=== PATIENT | male | born 1940 | race Caucasian/White ===

== ENCOUNTER → 2023-07-31 15:07 | Outpatient (REF) | payer OTHER, SELFPAY | LOC: RAD 15:07 | PROVIDERS: ATTENDING PHYSICIAN Physician Assistant | DX: S09.0XXA Injury of blood vessels of head, not elsewhere classified, initial encounter (principal); M25.512 Pain in left shoulder | CPT/HCPCS: 70450; 73030 ==

== ENCOUNTER 2023-08-22 15:23 | Emergency (ER) | payer OTHER, SELFPAY ==
[2023-08-22 15:36] VITALS: BP 119/61
[2023-08-22 16:02] LABS: % Basophils 0.3 % (0-2); % Eosinophils 0.3 % (0-6); % Immature Granulocytes 0.1 % (0-0.5); % Lymphocytes 20.6 % (20.5-51.1); % Monocytes 7.1 % (1.7-9.3); % Neutrophils 71.6 % (42.2-75.2); Absolute Lymphocytes 1.4 10^3/uL (1.2-3.4); Absolute Monocytes 0.5 10^3/uL (0.1-0.6); Absolute Neutrophils 4.9 10^3/uL (1.4-6.5); Hematocrit 37.1 % (39.0-52.0); Hemoglobin 12.2 g/dL (13.0-18.0); Mean Corp Hgb Conc. 32.9 g/dL (33.0-37.0); Mean Corpuscular Hgb 31.6 pg (27.0-31.0); Mean Corpuscular Volume 96.1 fL (80.0-94.0); Mean Platelet Volume 8.8 fL (7.4-10.4); Nucleated Red Blood Cells % 0 % (-); Platelet Count 216 10^3/uL (130-400); Red Blood Cell Count 3.86 10^6/uL (4.70-6.10); Red Cell Dist. Width 13.7 % (11.5-14.5); White Blood Cell Count 6.9 10^3/uL (4.8-10.8)
[2023-08-22 16:14] LABS: ALT (SGPT) 27 U/L (0-50); AST (SGOT) 31 U/L (17-59); Albumin 3.7 g/dl (3.5-5.0); Blood Urea Nitrogen 19 mg/dl (9-20); Carbon Dioxide 32 mmol/L (22-30); Glucose 119 mg/dl (70-99); Total Bilirubin 0.7 mg/dl (0.2-1.3); Total Protein 7.4 g/dl (6.3-8.2); eGFR > 60.00
[2023-08-22 16:27] LABS: Troponin I 0.015 ng/ml
[2023-08-22 16:43] LABS: Alkaline Phosphatase 94 U/L (38-126); Calcium 8.9 mg/dl (8.4-10.2); Chloride 88 mmol/L (98-107); Potassium 5.2 mmol/L (3.5-5.1); Sodium 127 mmol/L (135-145)
[2023-08-22] MEDS: NSS 500 IV (17:57)
[2023-08-22 18:13] LABS: Osmolality Urine 437 mOsm/kg (300-900)
--- NOTE | 2023-08-22 18:13 | ED.GENMED ---
History of Present Illness
General
Chief Complaint: Dizziness
Source: patient, records and family
Exam Limitations: none
Time Seen by Provider: 08/22/23 17:06
Nursing documentation reviewed up to this point in time: agreed with
Travel History
Have you had any contact with someone who has COVID-19?: No
Do you have any symptoms of coronavirus? Fever > 100 degrees, chills, cough, shortness of breath, sore throat, loss of taste or smell, muscle aches, or headache?: No
History of Present Illness
History of Present Illness:
Patient is an 83-year-old male who presents to the emergency feeling wobbly and lightheaded over the past couple days. Patient feels weak but denies any fever or chills. Patient has mild shortness of breath but is unsure if this is an increase
from his baseline. Patient denies chest pain. Patient has chronic cough that is unchanged. Patient denies any nausea or vomiting but admits to decreased oral intake. Patient's had diarrhea. Patient has pulmonary fibrosis and was on OFEV and
then developed diarrhea after 2 weeks. Patient has been off of it for approximately 2 weeks but has not really responded. Patient had something similar approximately a year ago to these medications and was found to be hypovolemic and hyponatremic.
Patient states it feels similar to that. Patient does not like drinking water. Patient does not want to be admitted to the hospital.
Past History
Past History
ED Past Medical History: GERD, Seizures and Other (Pulmonary fibrosis)
ED Past Surgical History: Other (Mohs surgery)
Social History
Tobacco: Non-smoker
Alcohol: None
Drug: None
Living: with family
Review of Systems
Review of Systems
All Other Systems: ROS reviewed and negative except as documented in HPI and ROS
Constitutional: Reports fatigue; Denies fever or chills
EENT: Reports no symptoms
Respiratory: Reports cough and trouble breathing
Cardiac: Reports no symptoms
ABD/GI: Reports diarrhea and anorexia; Denies abdominal pain, nausea or vomiting
: Reports no symptoms
Musculoskeletal: Reports no symptoms
Skin: Reports no symptoms
Neurological: Reports weakness (Generalized and not focal); Denies dizzy
Hematologic/Lymphatic: Reports no symptoms
Phy Exam
Physical Exam
Physical Exam:
Physical Exam
General: No apparent distress, alert and appropriate, elderly and frail with dry mucous membranes
HENT: Normocephalic, supple with no lymphadenopathy, no thyromegaly
Eyes: Clear sclera, conjuctiva without injection
Heart: Regular rhythm and rate. No S3, S4. No murmur. Distant heart sounds
Lungs: No respiratory distress, no stridor, lung sounds coarse and diminished with scattered fibrotic Rales throughout but equal bilaterally
Abdomen: Soft, nontender, BS good
Neuro: Alert and oriented x 3, CN II - XII intact, no motor focality, no cerebellar dysfunction
Skin: no rash
Psychiatric: well kept. interactive and cooperative
Extremities: No edema, cyanosis, tenderness
Course
Orders/Labs/Results
Orders:
Orders
08/22/23 15:41
Electrocardiogram (*1) Urgent
Reason for Study: Shortness of Breath
EKG- Treatment ONCE
08/22/23 15:49
Complete Blood Count/With Diff Urgent
Comprehensive Metabolic Panel Urgent
Serum Osmolality Urgent
Comment: ADDON
Troponin I Urgent
08/22/23 17:36
0.9% Sodium Chloride 500 ml [Nss] 500 ml IV BOLUS
08/22/23 17:42
Add On- LAB Urgent
Tests Added?: serum osmality
08/22/23 17:53
Osmolality, Random Urine Urgent
Date Specimen was Collected: 08/22/23
Time Specimen was Collected: 17:43
Urine Sodium Urgent
Date Specimen was Collected: 08/22/23
Time Specimen was Collected: 17:43
Abnormal Lab Results
08/22/23
15:49
RBC 3.86 L 10^6/uL
(4.70-6.10)
Hgb 12.2 L g/dL
(13.0-18.0)
Hct 37.1 L %
(39.0-52.0)
MCV 96.1 H fL
(80.0-94.0)
MCH 31.6 H pg
(27.0-31.0)
MCHC 32.9 L g/dL
(33.0-37.0)
Sodium 127 L mmol/L
(135-145)
Potassium 5.2 H mmol/L
(3.5-5.1)
Chloride 88 L mmol/L
(98-107)
Carbon Dioxide 32 H mmol/L
(22-30)
Creatinine 0.5 L mg/dL
(0.7-1.3)
Glucose 119 H mg/dl
(70-99)
Serum Osmolality 272 L mOsm/kg
(275-300)
08/22/23 15:49
08/22/23 15:49
Vital Signs
Initial and Last Documented VS:
Initial Vital Signs
Temp Pulse Resp BP Pulse Ox
97.6 F 64 16 119/61 97
08/22/23 15:36 08/22/23 15:36 08/22/23 15:36 08/22/23 15:36 08/22/23 15:36
Last Documented Vital Signs
Temp Pulse Resp BP Pulse Ox
97.6 F 64 16 119/61 97
08/22/23 15:36 08/22/23 15:36 08/22/23 15:36 08/22/23 15:36 08/22/23 15:36
*Radiology
Radiology exam reviewed: other (na)
*Pulse Oximetry
Patient hypoxic: no
Comment: Ranges from 88 to 92% while at rest
*EKG
Interpreted by ED Provider?: Yes
EKG Intrepretation Date: 08/22/23
EKG Intrepretation Time: 18:19
Interpretation: abnormal
Comparison EKG: no changes
Heart Rate: 66
Rate: normal
Rhythm: sinus
[place]: normal axis
Interval: normal QT interval and first degree heart block
QRS Pattern: right bundle branch block
Ischemia: no ischemia
*[employer] Manager Interpretation
Rate: normal
Interpretation: normal
Heart Rate: 66
Rhythm: sinus
*Critical Care Note
Total Time (30-74mins, 75-104mins- exclusive of procedures): Not Applicable
Update Note
Update Note:
Patient does not want to be admitted. Patient's sodium is low. Patient's EF is 55 to 60% on echo 2 2 and 3 years ago. Patient did have coronary stents placed at another hospital in the past year. Patient is not on fluid or salt restriction.
Will check the patient's serum and urine osmolality as well as urine sodium and will run it by nephrology. Believe the patient probably has hypovolemic hyponatremic
Texted with nephrology and will start the patient on salt tabs as well as a high-protein diet. Labs will need to be repeated in a week and will try to control diarrhea.
ED Attending Note
-
Portions of this chart may have been created with voice recognition software.� Occasional wrong word or��sound alike� substitutions may have occurred due to the inherent limitations of voice recognition software.
Discharge Plan
Departure
Patient Disposition: Home (Routine Discharge)
Date of Disposition: 08/22/23
Time of Disposition: 19:36
Patient with high blood pressure during this ER visit?: No
Condition: Fair
Covid-19: Not Applicable
Discharge Problem:
Hyponatremia, Weakness
Instructions: High Calorie, High Protein Diet, Dehydration, Adult ED, Weakness ED, Hyponatremia
Prescriptions:
No Action
levetiracetam 500 MG tablet
2,000 mg PO HS
lamotrigine 300 MG tablet extended release 24hr
600 mg PO DAILY
Rx Instructions:
TAKEN W/ 100MG = 700MG
pantoprazole 20 mg Tablet,Delayed Release (Dr/Ec)
20 mg PO DAILY
Ofev 150 mg Capsule
150 mg PO Q12H
Hold Instructions: Resume on 09/13/22.
prednisone 10 mg tablet
5 mg PO DAILY
lamotrigine 100 mg tablet extended release 24hr
100 mg PO DAILY
Rx Instructions:
TAKEN W/ 600MG = 700MG
Fibroneer
2 tab PO BID
Hold Instructions: Resume on 09/13/22.
Rx Instructions:
Experimental Drug
Referrals:
Sacha Enamorado MD [Family Provider] - Follow up in 5-7 days
Activity Restrictions/Additional Instructions:
Use a high-protein diet. Make sure to drink plenty of fluids. Take a salt tablet (1 gram of Sodium Chloride) twice a day. Make sure to have your sodium rechecked in 5 to 7 days when you see your family doctor. Any problems please return
Interventions
Interventions:
*General Assessment Last Done: 08/22/23 15:36
ED- Fall Risk Assessment Last Done: 08/22/23 18:00
*ED COVID-19 Vaccine History Last Done: 08/22/23 15:36
ED- Neurological Assessment Last Done: 08/22/23 18:00
ED- Cardiac Assessment Last Done: 08/22/23 18:00
ED Swallowing Screen Last Done: 08/22/23 18:00
Discharge Date and Time
Print Language: NORTHER[place] IRISH
[2023-08-22 18:25] LABS: Osmolality Serum 272 mOsm/kg (275-300)
[2023-08-22 19:00] LABS: Urine Sodium 74 mmol/L (30-90)
[2023-08-22 19:49] VITALS: BP 120/60
== END 2023-08-22 19:52 | disposition home or self-care (01) ==
LOC: EMR 15:23
PROVIDERS: Emergency Medicine; EMERGENCY PHYSICIAN Emergency Medicine; FAMILY PHYSICIAN Family Medicine
DX: E87.1 Hypo-osmolality and hyponatremia (principal); R53.1 Weakness; K21.9 Gastro-esophageal reflux disease without esophagitis; G40.909 Epilepsy, unspecified, not intractable, without status epilepticus; J84.10 Pulmonary fibrosis, unspecified
CPT/HCPCS: 99283; 96360; 80053; 83930; 83935; 84300; 84484; 85025; 93005

== ENCOUNTER 2023-08-24 16:29 | Inpatient (IN) | payer OTHER, SELFPAY ==
[2023-08-24] VITALS (9 sets, daily range): BP systolic 97–130; BP diastolic 54–79; BMI 19.8; BMI 19.2
[2023-08-24 12:11] LABS: % Basophils 0.6 % (0-2); % Eosinophils 0.2 % (0-6); % Immature Granulocytes 0.4 % (0-0.5); % Lymphocytes 13.9 % (20.5-51.1); % Monocytes 8.4 % (1.7-9.3); % Neutrophils 76.5 % (42.2-75.2); Absolute Basophils 0.1 10^3/uL (0-0.2); Absolute Lymphocytes 1.3 10^3/uL (1.2-3.4); Absolute Monocytes 0.8 10^3/uL (0.1-0.6); Absolute Neutrophils 6.9 10^3/uL (1.4-6.5); Hematocrit 34.3 % (39.0-52.0); Hemoglobin 11.8 g/dL (13.0-18.0); Mean Corp Hgb Conc. 34.4 g/dL (33.0-37.0); Mean Corpuscular Hgb 31.7 pg (27.0-31.0); Mean Corpuscular Volume 92.2 fL (80.0-94.0); Mean Platelet Volume 8.6 fL (7.4-10.4); Nucleated Red Blood Cells % 0 % (-); Platelet Count 211 10^3/uL (130-400); Red Blood Cell Count 3.72 10^6/uL (4.70-6.10); Red Cell Dist. Width 13.8 % (11.5-14.5); White Blood Cell Count 9.1 10^3/uL (4.8-10.8)
[2023-08-24 12:21] LABS: ALT (SGPT) 20 U/L (0-50); AST (SGOT) 26 U/L (17-59); Albumin 2.9 g/dl (3.5-5.0); Alkaline Phosphatase 79 U/L (38-126); Blood Urea Nitrogen 13 mg/dl (9-20); Calcium 7.3 mg/dl (8.4-10.2); Carbon Dioxide 29 mmol/L (22-30); Chloride 95 mmol/L (98-107); Estimated Creatinine Clearance 78 ml/min; Glucose 123 mg/dl (70-99); Sodium 130 mmol/L (135-145); Total Bilirubin 0.5 mg/dl (0.2-1.3); Total Protein 5.8 g/dl (6.3-8.2); eGFR > 60.00
--- NOTE | 2023-08-24 12:31 | ED.GENMED ---
History of Present Illness
General
Chief Complaint: Fall
Time Seen by Provider: 08/24/23 11:59
Travel History
Have you had any contact with someone who has COVID-19?: No
Do you have any symptoms of coronavirus? Fever > 100 degrees, chills, cough, shortness of breath, sore throat, loss of taste or smell, muscle aches, or headache?: No
History of Present Illness
History of Present Illness:
83-year-old male with history of interstitial lung disease/pulmonary fibrosis presents to the emergency department for evaluation of severe weakness. He had a minor fall today and was unable to get himself up off the floor on several occasions. He
was seen here in this emergency department 2 days ago for presumed dehydration and was recommended to be admitted however declined. He was also noted to have a room air oxygen saturation of 66% on arrival and is noted to have a low-grade fever. He
denies any coughing or purulent sputum. Denies any chest pain at this time
Past History
Past History
ED Past Medical History: GERD, Seizures and Other (Pulmonary fibrosis)
ED Past Surgical History: Other (Mohs surgery)
Social History
Tobacco: Non-smoker
Alcohol: None
Drug: None
Living: with family
Review of Systems
Review of Systems
Allergies reviewed?: Yes
All Other Systems: ROS reviewed and negative except as documented in HPI and ROS
Phy Exam
Physical Exam
Physical Exam:
GEN: Thin and frail, cachectic appearing, tachypneic with pursed lip breathing
Eyes: PERRLA, EOMs intact, no scleral icterus
HENT: NCAT, oral mucosa dry
Lungs: Tachypneic with pursed lip breathing, profoundly diminished breath sounds on the right, faint interstitial crackles on the left
Cardiac: RRR, no M/R/G, no peripheral edema. Radial pulses 2+ bilat
Abdomen: S, NT, ND, NABS, no masses or hepatosplenomegaly
Neuro: AO x 3
MSK: No gross deformity or ecchymosis. No edema. No digital clubbing
Skin: No rashes, petechiae. Normal color, no pallor or jaundice.
Psych: Calm, cooperative, proper hygiene
Course
Orders/Labs/Results
Orders:
Orders
08/24/23 12:01
EKG [Electrocardiogram (*1)] Urgent
Reason for Study: Syncope
08/24/23 12:02
EKG- Treatment ONCE
08/24/23 12:03
Complete Blood Count/With Diff Urgent
Comprehensive Metabolic Panel Urgent
08/24/23 12:30
CR Chest - 2 Views Urgent
Comment:
Reason For Exam: hypoxia
08/24/23 12:37
Blood Culture Q30M
FILEMON Source: Blood/Venous
Specimen Description:
Blood Culture Q30M
FILEMON Source: Blood/Venous
Specimen Description:
08/24/23 12:38
COVID-19 Antigen Urgent
Source: Nasal Swab
Lactic Acid Q4H
Comment: CANCEL 2nd LACTIC ACID IF 1st LACTIC ACID IS LESS THAN 2
Venous Blood Gas Urgent
%Oxygen/Room Air: 66
08/24/23 12:59
Urinalysis Reflex To Culture Urgent
Date Specimen was Collected: 08/24/23
Time Specimen was Collected: 12:51
08/24/23 13:26
LevoFLOXacin 750 MG/150 ML [Levaquin] 750 mg in 150 ml IV NOW
08/24/23 13:36
0.9% Sodium Chloride 1000 ml [Nss] 1,000 ml IV BOLUS
08/24/23 16:45
Lactic Acid Q4H
Comment: CANCEL 2nd LACTIC ACID IF 1st LACTIC ACID IS LESS THAN 2
Abnormal Lab Results
08/24/23 08/24/23
12:03 12:38
RBC 3.72 L 10^6/uL
(4.70-6.10)
Hgb 11.8 L g/dL
(13.0-18.0)
Hct 34.3 L %
(39.0-52.0)
MCH 31.7 H pg
(27.0-31.0)
Absolute Neuts (auto) 6.9 H 10^3/uL
(1.4-6.5)
Absolute Monos (auto) 0.8 H 10^3/uL
(0.1-0.6)
Neutrophils % 76.5 H %
(42.2-75.2)
Lymphocytes % 13.9 L %
(20.5-51.1)
VBG pCO2 63 H mmHg
(35-48)
VBG HCO3 34.8 H mmol/L
(22-27)
Sodium 130 L mmol/L
(135-145)
Chloride 95 L mmol/L
(98-107)
Creatinine 0.4 L mg/dL
(0.7-1.3)
Glucose 123 H mg/dl
(70-99)
Lactic Acid 3.7 H mmol/L
(0.7-2.0)
Calcium 7.3 L D mg/dl
(8.4-10.2)
Total Protein 5.8 L D g/dl
(6.3-8.2)
Albumin 2.9 L g/dl
(3.5-5.0)
08/24/23 12:03
08/24/23 12:03
Vital Signs
Initial and Last Documented VS:
Initial Vital Signs
BP
97/61
08/24/23 11:49
Last Documented Vital Signs
Temp Pulse Resp BP Pulse Ox
100.8 F H 85 29 103/58 95
08/24/23 11:52 06/02/24 13:00 08/24/23 13:00 08/24/23 13:00 08/24/23 13:00
MDM/Problems Addressed
MDM/Problems Addressed:
Patient is markedly hypoxic likely secondary to bilateral pneumonia. His weakness is most likely secondary to hypoxia. He also appears to be volume depleted clinically. Will require hospitalization for further management. Broad-spectrum IV
antibiotics initiated particular given the patient's chronic steroid use
*Critical Care Note
Total Time (30-74mins, 75-104mins- exclusive of procedures): Not Applicable
ED Attending Note
-
Portions of this chart may have been created with voice recognition software.� Occasional wrong word or��sound alike� substitutions may have occurred due to the inherent limitations of voice recognition software.
Discharge Plan
Departure
Patient Disposition: Admit
Date of Disposition: 08/24/23
Time of Disposition: 13:51
Admit to: Med/Surg
Presentation/result/management discussed w/ accepting MD/DO: Hospitalist
Discharge Problem:
Bilateral pneumonia, Acute hypoxemic respiratory failure
Prescriptions:
No Action
lamotrigine 300 MG tablet extended release 24hr
600 mg PO HS
Rx Instructions:
TAKEN W/ 100MG = 700MG
pantoprazole 20 mg Tablet,Delayed Release (Dr/Ec)
20 mg PO DAILY
prednisone 10 mg tablet
5 mg PO DAILY
lamotrigine 100 mg tablet extended release 24hr
100 mg PO HS
Rx Instructions:
TAKEN W/ 600MG = 700MG
atorvastatin 80 mg tablet
80 mg PO DAILY
clopidogrel 75 mg tablet
75 mg PO DAILY
aspirin 81 mg Tablet,Delayed Release (Dr/Ec)
81 mg PO DAILY
nitroglycerin 0.4 mg tablet, sublingual
0.4 mg sublingual [id number] PRN (Reason: chest pain)
metoprolol tartrate 25 mg tablet
25 mg PO BID
levetiracetam 500 mg Tablet Extended Release 24 Hr
2,000 mg PO HS
Referrals:
Sacha Enamorado MD [Family Provider] -
Interventions
Interventions:
*Risk Screen - Suicide Last Done: 08/24/23 11:58
*General Assessment Last Done: 08/24/23 11:58
*Neglect/Abuse Screening Last Done: 08/24/23 11:58
ED- Fall Risk Assessment Last Done: 08/24/23 13:20
ED-Musculoskeletal Assessment Last Done: 08/24/23 14:05
ED- Neurological Assessment Last Done: 08/24/23 13:20
ED-Skin Assessment Last Done: 08/24/23 14:05
Discharge Date and Time
Print Language: MONGOLIAN
[2023-08-24 13:11] LABS: Venous Blood Gas B.E. 7.3 mmol/L (-4 to +4); Venous Blood Gas HCO3 34.8 mmol/L (22-27); Venous Blood Gas O2 Sat % 68.9 %; Venous Blood Gas O2 Therapy 66; Venous Blood Gas pCO2 63 mmHg (35-48); Venous Blood Gas pH 7.35 (7.32-7.43); Venous Blood Gas pO2 40 mmHg (30-50)
[2023-08-24 13:13] LABS: Urine Albumin Negative (Neg - Trace); Urine Bilirubin Negative (Negative); Urine Character Slightly Cloudy (Clear); Urine Color Yellow; Urine Glucose Negative (Negative); Urine Ketone Negative (Negative); Urine Leukocyte Negative (Negative); Urine Nitrite Negative (Negative); Urine Occult Blood Negative (Negative); Urine Urobilinogen Negative (Neg - 1+)
[2023-08-24 13:21] LABS: Lactic Acid 3.7 mmol/L (0.7-2.0)
[2023-08-24 13:25] LABS: COVID-19 Antigen Negative (Negative)
[2023-08-24] MEDS: LEVAQUIN 150 IV (13:46)
[2023-08-24] MEDS: NSS 1000 IV (13:47)
--- NOTE | 2023-08-24 14:45 | HPS.HSE ---
Addendum entered and electronically signed by Chaz Munoz MD 08/24/23 16:46:
weakness noted at home, [facility] 66% (?accurate) and admitted with potential dx of LLL PNA
Pt seen independently and agree with COMMUNITY HEALTH DIRECTOR evaluation
Cachectic appearing with marked supraclavicular muscle loss (dgt relates that while on recent trial medication oral intake was very poor)
Lungs diffuse interstitial rales, no wheeze, no rhonchi
CV reg
Ext no edema
Imp: possible LLL PNA
ILD
cachexia
P: pulm consult
Levaquin
CT scan of chest
Pt is a DNR
Original Note:
Family Physician
-
Family Physician: Sacha Enamorado
Chief Complaint
-
Weakness, fall, fever
History of Present Illness
83-year-old male from home who reports when trying to get out of bed this morning he slid out of bed. He was seen at [place] [facility] 2 days ago for dehydration given IV fluids. He was noted to be hypoxic at 66% on room air on arrival which improved
to 4 L nasal cannula to 95%, although does not report any increased respiratory difficulty. He has a chronic nonproductive cough. Chest x-ray showing a left mid to lower lobe PNA with temp of 100.8 F. The patient denies sore throat, headache,
cough, chest pain, increased shortness of breath, abdominal pain, nausea, vomiting, diarrhea, urinary symptoms. The patient has past medical history of ILD chronic steroid-dependent, nocturnal epilepsy, GERD,Cardiac stent April x 2, May x at
[facility], pt follows with Dr Haley Galvez at [place], aortic stenosis.
Medical History
Past Medical History
Past Medical History: Reports Other
Additional Past Medical History:
IPF chronic steroid
BiPAP at bedtime with 2 L NC
Epilepsy
GERD
CAD
Aortic stenosis
Past Surgical History: Reports Other
Additional Past Surgical History:
Cardiac stent April x 2, May x at [facility] Dr aaron, pt follows with Dr Haley Galvez at [place]
Social History
Tobacco: Former Smoker
Alcohol: Daily (2 beers daily)
Drug: None
Living: With Family
Family History
Family History: Not pertinent
Allergies / Home Medications
Allergies reflects when Allergies were last updated in [employer].
Home Medications with original date entered in [employer]
Allergy/Medication List:
Allergies
Allergy/AdvReac Type Severity Reaction Status Date / Time
No Known Allergies Allergy Verified 08/22/23 15:39
Home Medications
lamotrigine 300 mg tablet,extended release 24 hr 600 mg PO HS Seizures 09/24/17
lamotrigine 100 mg tablet,extended release 24 hr 100 mg PO HS Seizures 09/08/22
pantoprazole 20 mg tablet,delayed release 20 mg PO DAILY Gastrointestinal Issue 09/08/22
prednisone 10 mg tablet 5 mg PO DAILY Autoimmune Disorder 09/08/22
aspirin 81 mg tablet,delayed release 81 mg PO DAILY 08/24/23
atorvastatin 80 mg tablet 80 mg PO DAILY 08/24/23
clopidogrel 75 mg tablet 75 mg PO DAILY 08/24/23
levetiracetam 500 mg tablet,extended release 24 hr 2,000 mg PO HS 08/24/23
metoprolol tartrate 25 mg tablet 25 mg PO BID 08/24/23
nitroglycerin 0.4 mg sublingual tablet 0.4 mg sublingual [id number] PRN chest pain 08/24/23
Review of Systems
-
History Source: Patient and Family (Daughter at bedside)
A 12 point ROS was completed and negative except as noted: Yes
Constitutional: Reports Fever and Fatigue
EENT: Denies Sore Throat or Runny Nose
Respiratory: Denies Cough or Trouble Breathing
Cardiac: Denies Chest Pain, Diaphoresis, Palpitations or Syncope
Abdomen/GI: Denies Abdominal Pain, Nausea, Vomiting, Diarrhea, Constipated, Bloody Stools or Black Stools
: Denies Dysuria, Frequency, Flank Pain, Incontinence, Difficulty Voiding or Urgency
Musculoskeletal: Denies Joint Pain or Edema
Skin: Denies Itching or Rash
Neurological: Reports Weakness (Generalized); Denies Dizzy or Headache
Endocrine: Reports No Symptoms
Hematologic/Lymphatic: Reports No Symptoms
Psych: Reports Calm
Physical Exam
Vital Signs
Vital Signs
Temp Pulse Resp BP Pulse Ox
100.8 F H 85 29 103/58 95
08/24/23 11:52 08/24/23 13:00 08/24/23 13:00 08/24/23 13:00 08/24/23 13:00
Physical Exam
General: Conversant, Fever, Chills and Other (Generalized weakness); No Pain
HEENT: NormoCephalic, Anicteric, Moist mucous membranes, PERRLA, [place] Conjunctivae and No Ptosis
Respiratory: Rales (Coarse scattered throughout both lung martinez); No Wheezes or Rhonchi
Cardiac: S1/S2, Regular Rhythm and Murmur (Diastolic 3/6 known aortic stenosis per family); No Rub, Gallop, Peripheral Edema or JVD
Breast: Deferred by me
GI: Soft, Non Tender, Non Distended, Normal Bowel Sounds and No Hepatosplenomegaly
Rectal: Deferred by Provider
Genito-urinary: Deferred by me
Musculoskeletal: Clubbing, No Cyanosis and No Edema
Skin: Warm and Dry; No Rash
Neuro: AO x 3 (But overall generalized weakness), No Motor Deficits, Nonfocal/grossly intact, Cranial Nerves Intact and No Sensory Deficits; No Slurred Speech, Facial Droop or Tremors
Psych: Calm
Laboratory Results
-
08/24/23 12:03
08/24/23 12:03
Laboratory Results
Lactic Acid 3.7 mmol/L (0.7-2.0) H 08/24/23 12:38
Total Bilirubin 0.5 mg/dl (0.2-1.3) 08/24/23 12:03
AST 26 U/L (17-59) 08/24/23 12:03
ALT 20 U/L (0-50) 08/24/23 12:03
Alkaline Phosphatase 79 U/L (38-126) 08/24/23 12:03
Impression/Plan
-
Impression/plan:
Admit to MedSurg
#Acute hypoxic respite sufficiency 2/2 left mid/lower PNA/Hx ILD chronic steroid-dependent
66% RA? true reading , 4 L nasal cannula 97%
COVID negative
-WBC 9.1, 100.8, 103/58, HR 85
-Sputum culture, blood cultures x 2
-IV Levaquin
-Consult Pulm -Dr. Los ortega
-On chronic prednisone 5 mg daily
-Tylenol as needed
-Follow CBC, CMP
CXR:
1. New extensive ground-glass opacity throughout the left mid and lower lung. Diagnostic possibilities are (1) SEVERE PNEUMONIA or (2) acute inflammatory pneumonitis.
2. 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
mediastinal shift and elevation of the right hemidiaphragm.
3. 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
#Hx ILD on chronic steroid
-cont prednisone 5 mg daily
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 Edgar Miller wants him to restart Ofev
-stopped OFEv 2-3 weeks ago dueto diarrhea his daugther states does come on and off of
#Chronic BiPAP use at bedtime
Uses full mask BiPAP with 3 L nasal cannula patient to bring own
#Daily Etoh use
- drinks 2 beers daily
no concern for MSAS protocol
#Hx nocturnal epilepsy
-Continue Keppra 2000 mg at bedtime, Lamictal 700 mg at bedtime
#GERD
Continue Protonix 20 mg daily
#CAD
#Cardiac stent April x 2, May x at [facility] Dr aaron, pt follows with Dr Haley Galvez at [place]
-Continue aspirin, atorvastatin 80 mg daily, Plavix 75 mg daily, metoprolol tartrate 25 mg twice daily with hold parameters
#Known aortic stenosis
DVT prophylaxis
Subcu Lovenox
DNR Per pt with daughter at bedside
--- NOTE | 2023-08-24 17:19 | CON.PUL ---
Consultation
Consultation Request
Date/Time Consultation Requested: 08/24/2023
Date/Time Consultation Performed: 08/24/2023
Requesting Provider: Dr. Munoz
Performing Provider: Dr. Jaime Madison
Reason for Consultation: Hypoxemic respiratory insufficiency-pneumonia
Medical History
-
History of Present Illness:
83-year-old man who came from home after falling from his bed. Apparently was seen 2 days ago in the emergency room he was given IV fluid for dehydration.
He was noted to be hypoxemic with sats down to 66%. Required 4 L of nasal cannula on arrival. He denies any respiratory difficulties.
Does report a chronic nonproductive cough with his history of interstitial lung disease for which he follows up at [facility]. Chest x-ray showed left mid and lower lobe infiltrate. Patient had a low-grade fever.
Denies any sore throat, hemoptysis, nausea, vomiting, diarrhea, swallowing problems.
Patient is on chronic steroids for interstitial lung disease and follows up at [facility].
Patient has been having poor p.o. intake. Weight loss.
Past Medical History
Past Medical History: Other (See assessment and plan section)
Social History
Tobacco: Former Smoker
Alcohol: Daily (2 beers)
Drug: None
Living: With Family
Family History
Family History: Reviewed & Not Pertinent
Allergies / Home Medications
Allergies
Allergy/AdvReac Type Severity Reaction Status Date / Time
No Known Allergies Allergy Verified 08/22/23 15:39
Home Medications
�Medication �Instructions �Recorded �Confirmed �Last Taken �Type
lamotrigine 300 mg tablet,extended 600 mg PO HS Seizures 09/24/17 08/24/23 08/23/23 History
release 24 hr
lamotrigine 100 mg tablet,extended 100 mg PO HS Seizures 09/08/22 08/24/23 08/23/23 History
release 24 hr
pantoprazole 20 mg tablet,delayed 20 mg PO DAILY Gastrointestinal 06/08/24/23 08/23/23 History
release Issue
prednisone 10 mg tablet 5 mg PO DAILY Autoimmune Disorder 09/08/22 08/24/23 08/23/23 History
aspirin 81 mg tablet,delayed 81 mg PO DAILY 08/24/23 08/24/23 08/23/23 History
release
atorvastatin 80 mg tablet 80 mg PO DAILY 08/24/23 08/24/23 08/23/23 History
clopidogrel 75 mg tablet 75 mg PO DAILY 08/24/23 08/24/23 08/23/23 History
levetiracetam 500 mg 2,000 mg PO HS 08/24/23 08/24/23 08/23/23 History
tablet,extended release 24 hr
metoprolol tartrate 25 mg tablet 25 mg PO BID 08/24/23 08/24/23 08/23/23 History
nitroglycerin 0.4 mg sublingual 0.4 mg sublingual [id number] PRN 08/24/23 08/24/23 Unknown History
tablet chest pain
Review of Systems
-
History Source: Patient
All other systems: Negative unless noted
Vitals / Labs / Diagnostic Testing
Vital Signs
Temp Pulse Resp BP Pulse Ox
98.4 F 85 29 103/58 95
08/24/23 15:45 08/24/23 13:00 08/24/23 13:00 08/24/23 13:00 08/24/23 13:00
Lab Data
08/24/23 12:03
08/24/23 12:03
Diagnostic Testing:
Physical Exam
-
HEENT: Normocephalic
Cardiovascular: S1/S2
Respiratory: Rales (Bilateral,)
GI: Soft and Non Distended
Neurology: Awake, Alert, Oriented and No Motor Deficits
Skin: Warm
General: Comfortable
Assessment
-
83-year-old male with past medical history noted, on low-dose chronic steroids for interstitial lung disease. Also on antifibrotic therapy Ofev, follows up at [facility]. Came to the hospital after falling off of bed. Found to be
hypoxemic. Recently seen in the emergency room for dehydration as well. Recently stopped off of due to diarrhea about 2 to 3 weeks ago. Chest x-ray showed new left sided infiltrate on top of interstitial changes that are chronic.
Respiratory insufficiency likely due to pneumonia on top of interstitial lung disease. Requiring 4 L of supplemental oxygen.
CXR:
-New extensive ground-glass opacity throughout the left mid and lower lung. Diagnostic possibilities are (1) SEVERE PNEUMONIA or (2) acute inflammatory pneumonitis.
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
mediastinal shift and elevation of the right hemidiaphragm.
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
Pulmonary cachexia
-
Conditions present prior admission:
Interstitial lung disease/?IPF on chronic steroids-follows up at [facility]. No details available.
5 mg of prednisone.
Patient stopped Ofev 2-3 weeks ago due to diarrhea
Not usually on supplemental oxygen.
Nocturnal BiPAP-2 L at bedtime.
Epilepsy
GERD
Coronary Artery disease
Aortic stenosis
Prior cardiac stents
Former smoker
Daily drinker-2 beers per day.
Assessment and plan:
Clinical picture suggest pneumonia-Viral versus bacterial.
Patient has a new left lower lobe and upper lobe groundglass opacity compared to prior x-rays. On top of chronic interstitial changes.
Differential diagnosis includes acute exacerbation of underlying ? idiopathic pulmonary fibrosis-in general infiltrates will be more symmetric.
I agree to start with antibiotics-received Levaquin in the emergency room. Continue for now.
Obtain a sputum culture
Blood cultures.
Follow fever curve and leukocytosis. Patient did have a low-grade fever on admission.
-
Okay to continue prednisone as prior to admission.
If there is worsening oxygenation then a CT of the chest may be helpful. Okay to hold for now.
Hold off on pulse steroids for now, infectious etiology suspected.
-
Doubt pulmonary edema as the patient appears to be dehydrated. Recently has been having diarrhea and also poor p.o. intake the last few days.
-
Incentive spirometry will be ordered
-
Aspiration precautions
-
Nocturnal bipap with 2 L O2 - similar to home.
Pt has a POC at home that he uses PRN.
-
Nutritional support, pt cachectic.
-
DVT prophylaxis
-
Will continue to follow.
-
DNR status.
-
After discharge patient will continue to follow-up at [facility].
-
Family updated by Dr. Madison 08/24/2023

Diagnosis section reviewed:
Echocardiogram 09/04/2021: Normal left ventricular size and function. No regional wall motion abnormalities. Mild LVH. Ejection fraction 55-60%. Normal biventricular size and function.
Mild aortic stenosis.
[2023-08-24 18:10] LABS: Lactic Acid 0.8 mmol/L (0.7-2.0)
[2023-08-24] MEDS: LOVENOX 40 MG SC (19:53)
[2023-08-24] MEDS: LOPRESSOR 25 MG PO (19:57)
[2023-08-24] MEDS: KEPPRA XR (EXTENDED RELEASE) 2000 MG PO (21:20)
[2023-08-24] MEDS: NON-FORMULARY ITEM 100 MG PO (21:20)
[2023-08-24] MEDS: NON-FORMULARY ITEM 600 MG PO (21:20)
[2023-08-25 07:45] VITALS: BP 107/63
[2023-08-25 07:48] LABS: % Basophils 0.4 % (0-2); % Eosinophils 0.3 % (0-6); % Immature Granulocytes 0.4 % (0-0.5); % Lymphocytes 22.8 % (20.5-51.1); % Monocytes 7.6 % (1.7-9.3); % Neutrophils 68.5 % (42.2-75.2); Absolute Lymphocytes 2.1 10^3/uL (1.2-3.4); Absolute Monocytes 0.7 10^3/uL (0.1-0.6); Absolute Neutrophils 6.2 10^3/uL (1.4-6.5); Hematocrit 32.9 % (39.0-52.0); Mean Corp Hgb Conc. 33.4 g/dL (33.0-37.0); Mean Corpuscular Hgb 31.3 pg (27.0-31.0); Mean Corpuscular Volume 93.7 fL (80.0-94.0); Mean Platelet Volume 9.1 fL (7.4-10.4); Nucleated Red Blood Cells % 0 % (-); Platelet Count 210 10^3/uL (130-400); Red Blood Cell Count 3.51 10^6/uL (4.70-6.10)
[2023-08-25] MEDS: PROTONIX 20 MG PO (07:53)
[2023-08-25] MEDS: DELTASONE 5 MG PO (07:53)
[2023-08-25] MEDS: ASPIR LOW (ENTERIC COATED) 81 MG PO (07:53)
[2023-08-25] MEDS: LIPITOR 80 MG PO (07:53)
[2023-08-25] MEDS: LOPRESSOR 25 MG PO ×2 (07:53→21:15)
[2023-08-25] MEDS: PLAVIX 75 MG PO (07:53)
[2023-08-25 08:29] LABS: ALT (SGPT) 21 U/L (0-50); AST (SGOT) 30 U/L (17-59); Albumin 3.3 g/dl (3.5-5.0); Alkaline Phosphatase 107 U/L (38-126); Blood Urea Nitrogen 14 mg/dl (9-20); Calcium 8.6 mg/dl (8.4-10.2); Carbon Dioxide 33 mmol/L (22-30); Chloride 91 mmol/L (98-107); Estimated Creatinine Clearance 75 ml/min; Glucose 91 mg/dl (70-99); Sodium 130 mmol/L (135-145); Total Bilirubin 0.7 mg/dl (0.2-1.3); Total Protein 6.7 g/dl (6.3-8.2); eGFR > 60.00
--- NOTE | 2023-08-25 10:12 | W.PN.PUL.V3 ---
Today's Communication / Plan
-
Wean oxygen
Continue antibiotics
Follow radiographs on occasion
No change in prednisone
Outpatient pulmonary [id number]
Assessment
-
83-year-old male with past medical history noted, on low-dose chronic steroids for interstitial lung disease. Also on antifibrotic therapy Ofev, follows up at [facility]. Came to the hospital after falling off of bed. Found to be
hypoxemic. Recently seen in the emergency room for dehydration as well. Recently stopped off of due to diarrhea about 2 to 3 weeks ago. Chest x-ray showed new left sided infiltrate on top of interstitial changes that are chronic.
Respiratory insufficiency likely due to pneumonia on top of interstitial lung disease. Requiring 4 L of supplemental oxygen.
CXR:
-New extensive ground-glass opacity throughout the left mid and lower lung. Diagnostic possibilities are (1) SEVERE PNEUMONIA or (2) acute inflammatory pneumonitis.
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
mediastinal shift and elevation of the right hemidiaphragm.
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
Pulmonary cachexia
-
Conditions present prior admission:
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 No details available.
5 mg of prednisone.
Patient stopped Ofev 2-3 weeks ago due to diarrhea
Not usually on supplemental oxygen.
Nocturnal BiPAP-2 L at bedtime.
Epilepsy
GERD
Coronary Artery disease
Aortic stenosis
Prior cardiac stents
Former smoker
Daily drinker-2 beers per day.
Plan
Respiratory status relatively stable
Wean supplemental oxygen-has home oxygen but only uses it at night
Nocturnal BiPAP with 2 L of oxygen
Aspiration precautions
Incentive spirometry
Mucolytic's
Mucus clearing devices
Continue outpatient prednisone 5 mg daily
Cultures reviewed
Unable to produce sputum
Empiric antibiotics
Follow radiographically
DVT prophylaxis-on Lovenox
GI prophylaxis-on pantoprazole
Nutrition
Early mobilization
Outpatient pulmonary [id number] at [facility]
Reviewed with nursing

Diagnosis section reviewed:
Echocardiogram 09/04/2021: Normal left ventricular size and function. No regional wall motion abnormalities. Mild LVH. Ejection fraction 55-60%. Normal biventricular size and function.
Mild aortic stenosis.
Subjective Data
-
Date of Service:
Date of Service: August 25, 2023
Chief Complaint: Pulmonary Follow Up and Dyspnea Follow Up
Subjective:
Feels about the same, no complaints of worsening shortness of breath, nonproductive cough, no chest pain, pleurisy, abdominal pain
Review of Systems
General: Other (Per HPI)
Objective Data
Data Reviewed
Vital Signs / I&O:
Vital Signs
Temp Pulse Resp BP Pulse Ox
97.2 F 88 18 107/63 98
08/25/23 07:45 08/25/23 07:53 08/25/23 07:45 08/25/23 07:53 08/25/23 07:45
Intake and Output
08/24/23 08/25/23 08/26/23
06:59 06:59 06:59
Intake Total 240 / 240
Output Total 100 / 100
Balance 140 / 140
SaO2: 98
Nasal Cannula flow liters per minute: 4
Physical Exam
General: Respiratory Distress (n) and Comfortable
HEENT: Normocephalic, Anicteric and Moist Mucous Membranes
Cardiovascular: Regular Rhythm
Respiratory: Wheeze (n), Crackles (Bilateral bases left greater than right), Rhonchi (n), Non-Labored Respirations, Accessory Resp Muscle Use (n) and Stridor (n)
GI: Soft, Non Distended and Non Tender
Neurology: Awake, Alert and No Motor Deficits
Skin: Warm, Good Color, Cyanosis (n), Jaundice (n) and Rash
Labs/Micro/Reports
Lab Data
08/25/23 06:33
08/25/23 06:33
--- NOTE | 2023-08-25 10:28 | W.PN.HOSP.TC ---
Today's Communication/Plan
-
see bold
Assessment / Plan
Assessment / Plan
#Acute hypoxic respite sufficiency
Left mid/lower PNA/Hx ILD chronic steroid-dependent
66% RA? true reading , 4 L nasal cannula 97% -wean as tolerated
COVID negative
Appreciate pulmonology input, continue antibiotics, bronchodilators
CXR:
1. New extensive ground-glass opacity throughout the left mid and lower lung. Diagnostic possibilities are (1) SEVERE PNEUMONIA or (2) acute inflammatory pneumonitis.
2. 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
mediastinal shift and elevation of the right hemidiaphragm.
3. 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
#Hx ILD on chronic steroid
-cont prednisone 5 mg daily
-Patient finished drug trial study yesterday as his guest service representative at [facility] Dr. Edgar Miller wants him to restart Ofev
-stopped OFEv 2-3 weeks ago dueto diarrhea his daugther states does come on and off of
#Chronic BiPAP use at bedtime
Uses full mask BiPAP with 3 L nasal cannula patient to bring own
#Daily Etoh use
- drinks 2 beers daily
no concern for MSAS protocol
#Hx nocturnal epilepsy
-Continue Keppra 2000 mg at bedtime, Lamictal 700 mg at bedtime
#GERD
Continue Protonix 20 mg daily
#CAD
#Cardiac stent April, May at [facility] Dr aaron, pt follows with Dr Haley Galvez at [place]
-Continue aspirin, atorvastatin 80 mg daily, Plavix 75 mg daily, metoprolol tartrate 25 mg twice daily with hold parameters
#Known aortic stenosis
DVT prophylaxis
Subcu Lovenox
DNR Per pt with daughter at bedside
Total time spent to see the patient on the floor, examine the patient, review data and lab results, discuss treatment plan with patient, nursing staff around 35 minutes.
Physical Exam
General: No acute distress
HEENT: Normocephalic, Atraumatic, EOMI, MMM
Respiratory: Clear to Auscultation bilaterally
Cardiac: Normal S1/S2, Regular Rate and Rhythm
GI: Soft, Nontender, Nondistended, Normal Bowel Sounds
Extremities: No Clubbing, Cyanosis, or Edema
Neuro: Nonfocal/Grossly Intact
Psych: Calm, Cooperative
Derm: No Visible lesions
Anticipated Discharge: 24 - 48 hours
Subjective/Interval History
-
Date of Service: August 25, 2023
Shortness of breath improved. No fever, no vomiting.
Objective Data
-
Labs:
Laboratory Results
08/25/23
06:33
WBC 9.0
Hgb 11.0 L
Hct 32.9 L
Plt Count 210
Sodium 130 L
Potassium 4.0
Chloride 91 L
Carbon Dioxide 33 H
BUN 14
Creatinine 0.5 L
Glucose 91
Calcium 8.6
Total Bilirubin 0.7
AST 30
ALT 21
Alkaline Phosphatase 107
Vital Signs:
Vital Signs
Temp Pulse Resp BP Pulse Ox
97.2 F 88 18 107/63 98
08/25/23 07:45 08/25/23 07:53 08/25/23 07:45 08/25/23 07:53 08/25/23 10:12
I&O
08/24/23 08/25/23 08/26/23
06:59 06:59 06:59
Intake Total 240 / 240
Output Total 100 / 100
Balance 140 / 140
--- NOTE | 2023-08-25 11:47 | RESPNOTE ---
patient was 85% on room air. placed on 2L and oxygen saturation came up to 93%. attempted to stand patient up to ambulate x2 and both times patient was wobbly and very unsteady on his feet. patient stated he could not walk and to sit him back in
bed.
--- NOTE | 2023-08-25 13:08 | CM ---
Patient seen bedside with daughter, Cyndi, initial assessment completed. Patient resides with his daughter in a two story home, two steps to enter. Patient denies DME for ambulation, does have a Bipap and oxygen at home for night time use. Patient
denies VN or SNF, reports he was supposed to start outpatient therapy at [place] but was admitted to hospital. Patient confirms PCP Sacha Enamorado, pharmacy [facility] on [address] in [place], confirms prescription coverage. CM discussed PT
recommendation of SNF, provided patient and daughter with list of SNFs, daughter would like to look into facilities and provide CM with choices. CM will continue to follow for discharge planning needs.
Plan; SNF pending accepting facility, family looking into local facilities, will require auth.
[2023-08-25] MEDS: LEVAQUIN 100 IV (14:56)
[2023-08-25 15:00] VITALS: BP 112/60
[2023-08-25] MEDS: LOVENOX 40 MG SC (17:36)
[2023-08-25 21:15] VITALS: BP 116/69
[2023-08-25] MEDS: KEPPRA XR (EXTENDED RELEASE) 2000 MG PO (22:30)
[2023-08-25] MEDS: NON-FORMULARY ITEM 600 MG PO (22:31)
[2023-08-25] MEDS: NON-FORMULARY ITEM 100 MG PO (22:31)
[2023-08-25 23:40] VITALS: BP 91/53
--- NOTE | 2023-08-26 06:00 | PTCARENOTE ---
Pt woke up this morning unable to recall where he was, asking 'Is this the airline?' After about five minutes this RN was able to reorient pt and he was able to report that he was at [facility]. Pt has a history of nocturnal epilepsy and
states that 'About five years ago I had a similar issue where I forgot where I was and it was a seizure'. No seizure activity noted during shift. VS stable and taken by this RN. House LAVATORY ATTENDANT Jennifer Swain notified, no new orders at this time.
[2023-08-26 06:01] VITALS: BP 120/65
--- NOTE | 2023-08-26 06:19 | W.PN.UPDATE ---
Update Note
Progress Note Update
0600 RN reports that when attempting to reposition pt this am he was confused, thinking he was at airport. After a few min pt returned to aaox3. Pt with hx of nocturnal epilepsy- last one 5 yrs ago and states similar symptoms of not remembering
where he was. PT already on 2 high doses of AED
Consider neuro consult if continues
[2023-08-26 07:06] LABS: % Basophils 0.4 % (0-2); % Eosinophils 1.1 % (0-6); % Immature Granulocytes 0.4 % (0-0.5); % Lymphocytes 13.5 % (20.5-51.1); % Monocytes 7.7 % (1.7-9.3); % Neutrophils 76.9 % (42.2-75.2); Absolute Eosinophils 0.1 10^3/uL (0-0.7); Absolute Lymphocytes 1.3 10^3/uL (1.2-3.4); Absolute Monocytes 0.7 10^3/uL (0.1-0.6); Absolute Neutrophils 7.1 10^3/uL (1.4-6.5); Hematocrit 32.7 % (39.0-52.0); Hemoglobin 10.9 g/dL (13.0-18.0); Mean Corp Hgb Conc. 33.3 g/dL (33.0-37.0); Mean Corpuscular Hgb 31.2 pg (27.0-31.0); Mean Corpuscular Volume 93.7 fL (80.0-94.0); Mean Platelet Volume 8.6 fL (7.4-10.4); Nucleated Red Blood Cells % 0 % (-); Platelet Count 200 10^3/uL (130-400); Red Blood Cell Count 3.49 10^6/uL (4.70-6.10); Red Cell Dist. Width 14.1 % (11.5-14.5); White Blood Cell Count 9.2 10^3/uL (4.8-10.8)
[2023-08-26 07:28] LABS: ALT (SGPT) 20 U/L (0-50); AST (SGOT) 30 U/L (17-59); Albumin 3.2 g/dl (3.5-5.0); Alkaline Phosphatase 103 U/L (38-126); Blood Urea Nitrogen 21 mg/dl (9-20); Calcium 9.1 mg/dl (8.4-10.2); Carbon Dioxide 33 mmol/L (22-30); Chloride 92 mmol/L (98-107); Estimated Creatinine Clearance 75 ml/min; Glucose 121 mg/dl (70-99); Potassium 4.4 mmol/L (3.5-5.1); Sodium 131 mmol/L (135-145); Total Bilirubin 0.8 mg/dl (0.2-1.3); Total Protein 6.7 g/dl (6.3-8.2); eGFR > 60.00
[2023-08-26 07:35] VITALS: BP 110/55
[2023-08-26] MEDS: ZOFRAN 4 MG IV (09:18)
--- NOTE | 2023-08-26 09:19 | W.PN.HOSP.TC ---
Today's Communication/Plan
-
See bold
Assessment / Plan
Assessment / Plan
#Acute hypoxic respite sufficiency
#Possible left mid/lower PNA/Hx ILD chronic steroid-dependent
66% RA? true reading , now on 3 L, was on 4 L nasal cannula 97% -wean as tolerated
COVID negative, chest CT shows progressive chronic interstitial lung disease with pneumonitis, unable to rule out pneumonia
Appreciate pulmonology input, bronchodilators
Changed to Levaquin to azithromycin and Rocephin due to confusion
#Hx ILD on chronic steroid
-cont prednisone 5 mg daily
-Patient finished drug trial study yesterday as his director of knowledge management at [facility] Dr. Edgar Miller wants him to restart Ofev
-stopped OFEv 2-3 weeks ago due to diarrhea his daughter states does come on and off of
-Daughter asking our director of knowledge management to call patient's director of knowledge management to discuss
#Acute encephalopathy
Urine analysis negative
Will discontinue Levaquin since it can cause confusion
Check head CT, B12/folic acid
#Chronic BiPAP use at bedtime
Uses full mask BiPAP with 3 L nasal cannula patient to bring own
#Daily Etoh use
drinks 2 beers daily
no concern for MSAS protocol
#Hx nocturnal epilepsy
-Continue Keppra 2000 mg at bedtime, Lamictal 700 mg at bedtime
#GERD
Continue Protonix 20 mg daily
#CAD
#Cardiac stent April x 2, May x at [facility] Dr aaron, pt follows with Dr Haley Galvez at [place]
-Continue aspirin, atorvastatin 80 mg daily, Plavix 75 mg daily, metoprolol tartrate 25 mg twice daily with hold parameters
#Known aortic stenosis
DVT prophylaxis
Subcu Lovenox
DNR Per pt with daughter at bedside
Updated daughter on phone 08/25
Total time spent to see the patient on the floor, examine the patient, review data and lab results, discuss treatment plan with patient, nursing staff around 50 minutes
Physical Exam
General: No acute distress
HEENT: Normocephalic, Atraumatic, EOMI, MMM
Respiratory: Clear to Auscultation bilaterally
Cardiac: Normal S1/S2, Regular Rate and Rhythm
GI: Soft, Nontender, Nondistended, Normal Bowel Sounds
Extremities: No Clubbing, Cyanosis, or Edema
Neuro: Intermittent confusion noted
Psych: Calm, Cooperative
Anticipated Discharge: > 48 hours
Subjective/Interval History
-
Date of Service: August 26, 2023
Patient with intermittent confusion, waxing waning. No fever, no vomiting.
Objective Data
-
Labs:
Laboratory Results
08/26/23
06:44
WBC 9.2
Hgb 10.9 L
Hct 32.7 L
Plt Count 200
Sodium 131 L
Potassium 4.4
Chloride 92 L
Carbon Dioxide 33 H
BUN 21 H
Creatinine 0.6 L
Glucose 121 H
Calcium 9.1
Total Bilirubin 0.8
AST 30
ALT 20
Alkaline Phosphatase 103
Vital Signs:
Vital Signs
Temp Pulse Resp BP Pulse Ox
97.6 F 73 17 110/55 94
08/26/23 07:35 08/26/23 07:35 08/26/23 07:35 08/26/23 07:35 08/26/23 07:35
I&O
08/25/23 08/26/23 08/27/23
06:59 06:59 06:59
Intake Total 240 / 240 260 / 260
Output Total 100 / 100 750 / 750
Balance 140 / 140 -490 / -490
--- NOTE | 2023-08-26 09:41 | W.PN.PUL.V3 ---
Today's Communication / Plan
-
Check ABG.
Continue antibiotics.
No increase in steroids.
Wean oxygen..
Attempting to contact patient's intellectual property lawyer-Dr. Miller.
Reviewed with daughter
Assessment
-
83-year-old male with past medical history noted, on low-dose chronic steroids for interstitial lung disease. Also on antifibrotic therapy Ofev, follows up at [facility]. Came to the hospital after falling off of bed. Found to be
hypoxemic. Recently seen in the emergency room for dehydration as well. Recently stopped off of due to diarrhea about 2 to 3 weeks ago. Chest x-ray showed new left sided infiltrate on top of interstitial changes that are chronic.
Respiratory insufficiency likely due to pneumonia on top of interstitial lung disease. Requiring 4 L of supplemental oxygen.
CXR:
-New extensive ground-glass opacity throughout the left mid and lower lung. Diagnostic possibilities are (1) SEVERE PNEUMONIA or (2) acute inflammatory pneumonitis.
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
mediastinal shift and elevation of the right hemidiaphragm.
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
Pulmonary cachexia
Toxic metabolic encephalopathy
-
Conditions present prior admission:
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 No details available.
5 mg of prednisone.
Patient stopped Ofev 2-3 weeks ago due to diarrhea
Not usually on supplemental oxygen.
Nocturnal BiPAP-2 L at bedtime.
Epilepsy
GERD
Coronary Artery disease
Aortic stenosis
Prior cardiac stents
Former smoker
Daily drinker-2 beers per day.
Plan
.
His pulmonary status is relatively stable without increased option requirements, however, his mental status is significantly declined
Wean supplemental oxygen-has home oxygen but only uses it at night-currently on 3 L-94% saturation
Nocturnal BiPAP with 2 L of oxygen
Aspiration precautions
Incentive spirometry
Mucolytic's
Mucus clearing devices
Continue outpatient prednisone 5 mg daily..
Hesitate high-dose steroid initiation. Due to significant mental status changes.
Check ABG to ensure hypercapnia is not playing a role
Cultures reviewed
Unable to produce sputum
Empiric antibiotics
Follow radiographically
DVT prophylaxis-on Lovenox
GI prophylaxis-on pantoprazole
Nutrition
Early mobilization
Reviewed with daughter over the phone-she asked if I will call Dr. Miller at [facility]-daughter will attempt to provide me with number to call and then I will place phone call
Outpatient pulmonary [id number] at [facility]-Dr. Miller
Reviewed with nursing as well as primary service

Diagnosis section reviewed:
Echocardiogram 09/04/2021: Normal left ventricular size and function. No regional wall motion abnormalities. Mild LVH. Ejection fraction 55-60%. Normal biventricular size and function.
Mild aortic stenosis.
Subjective Data
-
Date of Service:
Date of Service: August 26, 2023
Chief Complaint: Pulmonary Follow Up and Dyspnea Follow Up
Subjective:
No increased oxygen requirements, mental status-significantly confused, disoriented, no complaints of shortness of breath, chest pain
Review of Systems
General: Other ( per HPI)
Objective Data
Data Reviewed
Vital Signs / I&O:
Vital Signs
Temp Pulse Resp BP Pulse Ox
97.6 F 73 17 110/55 94
08/26/23 07:35 08/26/23 07:35 08/26/23 07:35 08/26/23 07:35 08/26/23 07:35
Intake and Output
08/25/23 08/26/23 08/27/23
06:59 06:59 06:59
Intake Total 240 / 240 260 / 260
Output Total 100 / 100 750 / 750
Balance 140 / 140 -490 / -490
SaO2: 94
Nasal Cannula flow liters per minute: 3
Physical Exam
General: Respiratory Distress (n) and Comfortable
HEENT: Normocephalic, Anicteric and Moist Mucous Membranes
Cardiovascular: Regular Rhythm
Respiratory: Wheeze (n), Crackles (Bilateral bases left greater than right), Rhonchi (n), Non-Labored Respirations, Accessory Resp Muscle Use (n) and Stridor (n)
GI: Soft, Non Distended and Non Tender
Neurology: Awake, Alert and No Motor Deficits
Skin: Warm, Good Color, Cyanosis (n), Jaundice (n) and Rash
Labs/Micro/Reports
Lab Data
08/26/23 06:44
08/26/23 06:44
Microbiology
08/24/23 12:37 Blood/Venous Blood Culture - Preliminary
No Growth in 24 hours- Final report to follow
08/24/23 12:37 Blood/Venous Blood Culture - Preliminary
No Growth in 24 hours- Final report to follow
[2023-08-26] MEDS: LOPRESSOR 25 MG PO ×2 (11:13→21:43)
[2023-08-26] MEDS: ASPIR LOW (ENTERIC COATED) 81 MG PO (11:13)
[2023-08-26] MEDS: PLAVIX 75 MG PO (11:13)
[2023-08-26] MEDS: LIPITOR 80 MG PO (11:13)
[2023-08-26] MEDS: DELTASONE 5 MG PO (11:14)
[2023-08-26] MEDS: PROTONIX 20 MG PO (11:20)
--- NOTE | 2023-08-26 11:26 | CM ---
Patient seen bedside, patient inquiring where he is and where he came from. CM spoke with patients nurse regarding confusion. CM left voicemail for patient daughter, Cyndi, regarding referrals for SNFS. CM will continue to follow for discharge
planning needs.
Plan; SNF pending accepting facility, will need auth.
--- NOTE | 2023-08-26 13:30 | PTCARENOTE ---
12:45 Pt confused at times, pt able to state his name and birthday, did not know he is in the hospital. Pt's daughter at bedside and concern mention pt is having increase confusion. Vs stable. O2 3L via n/c (pulse ox 95%)DR. Lezama notified and here at
bedside(spoke to pt's daughter) ordered Cat scan of head, ABG's and change IV AB therapy, continue to monitor pt closely.
[2023-08-26 13:50] LABS: B.E. 6.7 mmol/L; HCO3 33.5 mmol/L (21-28); O2 Saturation % 99.4 % (94-98); PCO2 58 mmHg (35-48); PO2 120 mmHg (83-108); pH 7.37 (7.35-7.45)
--- NOTE | 2023-08-26 14:40 | PN.CDI ---
CDI
- -
CDI:
Physician Documentation Request
Admit Date: 08/24/23 16:29
Dear Doctor Do,
Clinical Indicators:
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
Lactic Acid on admission:
08/24/23
12:38
Lactic Acid 3.7 H
Temp on admission:
08/24/23
11:52
Temp 100.8 F H
RR on admission:
08/24/23
11:52 08/24/23
12:30 08/24/23
13:00
Resp Rate 24 26 29
08/24/23
14:00 08/24/23
14:30 08/24/23
15:15
Resp Rate 23 30 30
Please clarify which of the following most accurately describes the status of the patient's infection:
Sepsis, POA
- Systemic manifestations of infection, with 2 or more SIRS criteria which include:
- Fever >100.4 degrees F or hypothermia < 96.8 degrees F
- Leukocytosis - WBC > 12,000 or leukopenia - WBC < 4,000 or > 10% bands
- Tachycardia > 90 beats per minute
- Tachypnea - RR > 20 breaths per minute or PaCO2 , 32mmHg
Source: Merck Manual 2013
- Indicate the known or suspected organism
Pneumonia Only, Without Systemic Illness
Other, please specify
Use of terms such as suspected, likely, concern for, or probable (associated with a specific diagnosis that is being evaluated, monitored, or treated as if it exists) are acceptable and can be coded in the inpatient setting, when documented at the
time of discharge.
Thank you,
JULIANNA Hawk RN
CDI Specialist
available via tiger text
Please use your independent medical judgment in providing your response.
[2023-08-26] MEDS: MIRALAX 17 GRAMS PO ×2 (15:07→21:44)
[2023-08-26] MEDS: STERILE WATER FOR INJECTION 10 ML IV (15:08)
[2023-08-26] MEDS: ROCEPHIN 1000 MG IV (15:08)
--- NOTE | 2023-08-26 15:09 | PN.CDI ---
CDI
- -
CDI:
Physician Documentation Request
Admit Date: 08/24/23 16:29
Dear Doctor Do,
Clinical Indicators:
Patient admitted with possible LLL pneumonia; PMH includes ILD.
Fluid restriction ordered:
Sodium levels:
08/24/23 08/25/23 08/26/23
12:03 06:33 06:44
Sodium 130 L 130 L 131 L
Based on the above, could you clarify in the progress notes, the appropriate diagnosis, if significant, that supports the above abnormalities and additional evaluation, monitoring and/or treatment rendered:
Hyponatremia
Abnormal lab values, clinically insignificant
Other, please specify
Use of terms such as suspected, likely, concern for, or probable (associated with a specific diagnosis that is being evaluated, monitored, or treated as if it exists) are acceptable and can be coded in the inpatient setting, when documented at the
time of discharge.
Thank you,
JULIANNA Hawk RN
CDI Specialist
available via tiger text
Please use your independent medical judgment in providing your response.
[2023-08-26] MEDS: ZITHROMAX INFUSION 250 IV (15:10)
[2023-08-26 15:11] VITALS: BP 100/61
--- NOTE | 2023-08-26 15:15 | PN.CDI ---
CDI
- -
CDI:
Physician Documentation Request
Admit Date: 08/24/23 16:29
Dear Doctor Do,
Clinical Indicators:
Patient admitted with possible LLL pneumonia; PMH includes ILD.
Fluid restriction ordered: 48 oz/daily
Sodium levels:
08/24/23 08/25/23 08/26/23
12:03 06:33 06:44
Sodium 130 L 130 L 131 L
Based on the above, could you clarify in the progress notes, the appropriate diagnosis, if significant, that supports the above abnormalities and additional evaluation, monitoring and/or treatment rendered:
Hyponatremia
Abnormal lab values, clinically insignificant
Other, please specify
Use of terms such as suspected, likely, concern for, or probable (associated with a specific diagnosis that is being evaluated, monitored, or treated as if it exists) are acceptable and can be coded in the inpatient setting, when documented at the
time of discharge.
Thank you,
JULIANNA Hawk RN
CDI Specialist
available via tiger text
Please use your independent medical judgment in providing your response.
--- NOTE | 2023-08-26 16:16 | CM ---
Patient seen with family, daughter requesting referrals to [facility]. CM will send referrals in [facility]. Patient will require auth. CM will continue to follow for discharge planning needs.
Plan; SNF pending accepting facility, will require auth.
--- NOTE | 2023-08-26 16:29 | W.PN.UPDATE ---
Update Note
Progress Note Update
.
Dr. Brewer spoke to Dr. Jesu Miller at [facility]-cell phone #[phone]-. The patient had seen a couple electromechanical assembler and eventually landed at [facility] and Dr. Miller's clinic. He was on low-dose prednisone and Ofev which she was tolerating well.
Because of ongoing deterioration. The patient went to [facility] and was enrolled in a phase 3 trial, which caused significant diarrhea (trial drug in addition to Ofev) and the trial medication was discontinued. The plan was to restart Ofev in
the near future. I reviewed the clinical course thus far. Dr. Marie and did not have any additional recommendations. With metabolic encephalopathy. He agreed high-dose steroids would not be in patient's best interest. He recommended ongoing
antibiotics and supportive care. I will discuss with daughter that I reviewed the case with Dr. Marie in to offer some confidence in his care.
[2023-08-26] MEDS: LOVENOX 40 MG SC (19:32)
[2023-08-26] MEDS: KEPPRA XR (EXTENDED RELEASE) 2000 MG PO (21:44)
[2023-08-26] MEDS: NON-FORMULARY ITEM 100 MG PO (21:45)
[2023-08-26] MEDS: NON-FORMULARY ITEM 600 MG PO (21:45)
[2023-08-26 23:19] VITALS: BP 105/61
[2023-08-27] VITALS (7 sets, daily range): BP systolic 95–145; BP diastolic 60–76; PULSE 2–71
[2023-08-27] MEDS: PLAVIX 75 MG PO (08:04)
[2023-08-27] MEDS: LOPRESSOR 25 MG PO (08:04)
[2023-08-27] MEDS: MIRALAX 17 GRAMS PO (08:04)
[2023-08-27] MEDS: PHENERGAN 25 MG PO (08:04)
[2023-08-27] MEDS: LIPITOR 80 MG PO (08:04)
[2023-08-27] MEDS: ASPIR LOW (ENTERIC COATED) 81 MG PO (08:04)
[2023-08-27] MEDS: DELTASONE 5 MG PO (08:04)
[2023-08-27] MEDS: PROTONIX 20 MG PO (08:04)
[2023-08-27 08:10] LABS: Hematocrit 35.4 % (39.0-52.0); Hemoglobin 11.3 g/dL (13.0-18.0); Mean Corp Hgb Conc. 31.9 g/dL (33.0-37.0); Mean Corpuscular Hgb 31.1 pg (27.0-31.0); Mean Corpuscular Volume 97.5 fL (80.0-94.0); Mean Platelet Volume 9.1 fL (7.4-10.4); Platelet Count 205 10^3/uL (130-400); Red Blood Cell Count 3.63 10^6/uL (4.70-6.10); Red Cell Dist. Width 14.2 % (11.5-14.5); White Blood Cell Count 10.3 10^3/uL (4.8-10.8)
[2023-08-27 08:33] LABS: Blood Urea Nitrogen 19 mg/dl (9-20); Calcium 9.2 mg/dl (8.4-10.2); Carbon Dioxide 34 mmol/L (22-30); Chloride 89 mmol/L (98-107); Estimated Creatinine Clearance 75 ml/min; Glucose 122 mg/dl (70-99); Magnesium 2.2 mg/dl (1.6-2.3); Phosphorus 3.6 mg/dl (2.5-4.5); Potassium 4.6 mmol/L (3.5-5.1); Sodium 133 mmol/L (135-145); eGFR > 60.00
[2023-08-27 08:39] LABS: Procalcitonin 0.05 ng/ml (0.0-0.25)
[2023-08-27 09:03] LABS: TSH Reflex To Free T4 1.07 uIU/ml (0.47-4.68)
[2023-08-27 09:22] LABS: Vitamin B12 843 pg/ml (239-931)
[2023-08-27] MEDS: ZOFRAN 4 MG IV (09:43)
--- NOTE | 2023-08-27 10:03 | W.PN.HOSP.TC ---
Addendum entered and electronically signed by Shoaib Lezama MD 08/27/23 15:32:
#Sepsis
Present upon admission
#Hyponatremia
Improving, continue fluid restriction
Original Note:
Today's Communication/Plan
-
see bold
Assessment / Plan
Assessment / Plan
#Acute hypoxic respite sufficiency
#Possible left mid/lower PNA/Hx ILD chronic steroid-dependent
66% RA? true reading , now on 3 L, was on 4 L nasal cannula 97% -wean as tolerated
COVID negative, chest CT shows progressive chronic interstitial lung disease with pneumonitis, unable to rule out pneumonia
Appreciate pulmonology input, antibiotics changed to Zosyn and azithromycin. Procalcitonin neg
Continue bronchodilators. Pulmonology suspects recurrent aspiration, SPL consulted
Poor prognosis per pulmonology
#Hx ILD on chronic steroid
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 Edgar Miller wants him to restart Ofev
-stopped OFEv 2-3 weeks ago due to diarrhea his daughter states does come on and off of
-Pulmonology has been in contact with patient's usual custom marine canvas fabricator
-Continue home prednisone 5 mg daily
# Toxic metabolic encephalopathy
Likely from viral infection with fever and vomiting
Urine analysis negative. Head CT, B12/folic acid all negative
Consult neurology, check brain MRI
#Fever with vomiting
Suspect viral gastroenteritis
Check abdominal x-ray, start IV fluids
#Hx nocturnal epilepsy
-Continue Keppra 2000 mg at bedtime, Lamictal 700 mg at bedtime
#Chronic BiPAP use at bedtime
Uses full mask BiPAP with 3 L nasal cannula patient to bring own
#Daily Etoh use
drinks 2 beers daily
no concern for MSAS protocol
#GERD
Continue Protonix 20 mg daily
#CAD
#Cardiac stent April, May at [facility] Dr aaron, pt follows with Dr Haley Galvez at [place]
-Continue aspirin, atorvastatin 80 mg daily, Plavix 75 mg daily, metoprolol tartrate 25 mg twice daily with hold parameters
#Known aortic stenosis
DVT prophylaxis
Subcu Lovenox
DNR Per pt with daughter at bedside
Updated daughter 08/26
Total time spent to see the patient on the floor, examine the patient, review data and lab results, discuss treatment plan with patient, nursing staff around 55 minutes
Physical Exam
General: No acute distress
HEENT: Normocephalic, Atraumatic, EOMI, MMM
Respiratory: Clear to Auscultation bilaterally
Cardiac: Normal S1/S2, Regular Rate and Rhythm
GI: Soft, Nontender, Nondistended, Normal Bowel Sounds
Extremities: No Clubbing, Cyanosis, or Edema
Neuro: Intermittent confusion noted
Psych: Calm, Cooperative
Anticipated Discharge: > 48 hours
Subjective/Interval History
-
Date of Service: August 27, 2023
Patient vomited bile this morning. He is more confused and lethargic today. Fever resolved.
Objective Data
-
Labs:
Laboratory Results
08/27/23
07:18
WBC 10.3
Hgb 11.3 L
Hct 35.4 L
Plt Count 205
Sodium 133 L
Potassium 4.6
Chloride 89 L
Carbon Dioxide 34 H
BUN 19
Creatinine 0.5 L
Glucose 122 H
Calcium 9.2
Vital Signs:
Vital Signs
Temp Pulse Resp BP Pulse Ox
97.8 F 84 20 105/64 95
08/27/23 08:04 08/27/23 08:04 08/27/23 08:04 08/27/23 08:04 08/27/23 08:04
I&O
06/07/1508/27/23 08/28/23
06:59 06:59 06:59
Intake Total 260 / 260 490 / 490
Output Total 750 / 750 400 / 400
Balance -490 / -490 90 / 90
--- NOTE | 2023-08-27 10:04 | W.PN.PUL.V3 ---
Today's Communication / Plan
-
Recurrent aspiration suspected.
Continue antibiotics.
Consider broadening antibiotics. If continues to clinically deteriorate.
Supportive care.
Comfort a priority.
Updated daughter-will need to address CODE STATUS and goals of care
Assessment
-
83-year-old male with past medical history noted, on low-dose chronic steroids for interstitial lung disease. Also on antifibrotic therapy Ofev, follows up at [facility]. Came to the hospital after falling off of bed. Found to be
hypoxemic. Recently seen in the emergency room for dehydration as well. Recently stopped off of due to diarrhea about 2 to 3 weeks ago. Chest x-ray showed new left sided infiltrate on top of interstitial changes that are chronic.
Respiratory insufficiency likely due to pneumonia on top of interstitial lung disease. Requiring 4 L of supplemental oxygen.
CXR:
-New extensive ground-glass opacity throughout the left mid and lower lung. Diagnostic possibilities are (1) SEVERE PNEUMONIA or (2) acute inflammatory pneumonitis.
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
mediastinal shift and elevation of the right hemidiaphragm.
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
Pulmonary cachexia
Toxic metabolic encephalopathy
Conditions present prior admission:
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 No details available.
5 mg of prednisone.
Patient stopped Ofev 2-3 weeks ago due to diarrhea
Not usually on supplemental oxygen.
Nocturnal BiPAP-2 L at bedtime.
Epilepsy
GERD
Coronary Artery disease
Aortic stenosis
Prior cardiac stents
Former smoker
Daily drinker-2 beers per day.
Plan
Pulmonary status has declined-suspect recurrent aspiration
Respiratory status tenuous with aspiration, increased FiO2 requirements
Wean supplemental oxygen-has home oxygen but only uses it at night-currently on 3 L-94% saturation
Nocturnal BiPAP with 2 L of oxygen
Aspiration precautions
Incentive spirometry
Mucolytic's
Mucus clearing devices
Continue outpatient prednisone 5 mg daily
Hesitate placing the patient on high-dose steroid initiation due to significant mental status changes-also after review with [facility] fish flipper they do believe it's UIP, which usually does not respond to steroids
ABG 08/26/23--58/120/7.37-suspect baseline PCO2.
Monitor mental status.
ABG does not explain hypercapnic explanation for mental status changes.
CT head 08/26/23-no acute abnormalities
Cultures reviewed
Unable to produce sputum
Empiric antibiotics-ceftriaxone and azithromycin-will change ceftriaxone to Zosyn
Consider broadening antibiotics with recurrent aspiration
Follow radiographically.
Nausea and emesis.
Aspiration precautions.
Anti-emetics as needed.
Abdominal flat plate 08/27/23-nonspecific, nonobstructed intestinal bowel gas pattern
DVT prophylaxis-on Lovenox
GI prophylaxis-on pantoprazole
Nutrition
Early mobilization
.
Dr. Brewer reviewed with daughter over the phone-08/26/23 she asked if I will call Dr. Miller at [facility]-daughter will attempt to provide me with number to call and then I will place phone call
Dr. Brewer reviewed with daughter at the bedside 08/27/23-explained end-stage nature of his pulmonary fibrosis, multiple comorbidities, deconditioning, malnutrition and potential/probable insurmountable obstacles-explained to the patient may not
survive hospitalization-she was tearful, but understanding.
Recommend DNR status as this patient would not likely come off the ventilator and or survive a cardiopulmonary arrest
Outpatient pulmonary [id number] at [facility]-Dr. Miller
Reviewed with nursing as well as primary service.
Pulmonary communications:
Dr. Brewer spoke to Dr. Jesu Miller at [facility]-cell phone #[phone]- On 08/26/23. The patient had seen a couple fish flipper and eventually landed at [facility] and Dr. Miller's clinic. He was on low-dose prednisone and Ofev which she was tolerating
well. Because of ongoing deterioration. The patient went to [facility] and was enrolled in a phase 3 trial, which caused significant diarrhea (trial drug in addition to Ofev) and the trial medication was discontinued. The plan was to restart
Ofev in the near future. I reviewed the clinical course thus far. Dr. Miller did not have any additional recommendations. With metabolic encephalopathy. He agreed high-dose steroids would not be in patient's best interest. He recommended ongoing
antibiotics and supportive care. I will discuss with daughter that I reviewed the case with Dr. Marie in to offer some confidence in his care.

Diagnosis section reviewed:
Echocardiogram 09/04/2021: Normal left ventricular size and function. No regional wall motion abnormalities. Mild LVH. Ejection fraction 55-60%. Normal biventricular size and function.
Mild aortic stenosis.
Subjective Data
-
Date of Service:
Date of Service: August 27, 2023
Chief Complaint: Pulmonary Follow Up and Dyspnea Follow Up
Subjective:
more confused, having episodes of emesis, no increased FiO2 requirements, unable to answer questions appropriately
Review of Systems
General: Other ( per HPI)
Objective Data
Data Reviewed
Vital Signs / I&O:
Vital Signs
Temp Pulse Resp BP Pulse Ox
97.8 F 84 20 105/64 95
08/27/23 08:04 08/27/23 08:04 08/27/23 08:04 08/27/23 08:04 08/27/23 08:04
Intake and Output
08/26/23 08/27/23 08/28/23
06:59 06:59 06:59
Intake Total 260 / 260 490 / 490
Output Total 750 / 750 400 / 400
Balance -490 / -490 90 / 90
SaO2: 95
Nasal Cannula flow liters per minute: 3
Physical Exam
General: Respiratory Distress (n) and Comfortable
HEENT: Normocephalic, Anicteric and Moist Mucous Membranes
Cardiovascular: Regular Rhythm
Respiratory: Wheeze (n), Crackles (Bilateral bases left greater than right), Rhonchi (n), Non-Labored Respirations, Accessory Resp Muscle Use (n) and Stridor (n)
GI: Soft, Non Distended and Non Tender
Neurology: Awake, Alert, No Motor Deficits, Lethargic and Other ( confused and delusional at times)
Skin: Warm, Good Color, Cyanosis (n), Jaundice (n) and Rash
Labs/Micro/Reports
Lab Data
08/27/23 07:18
08/27/23 07:18
Laboratory Results
08/26/23
13:41
pH 7.37
pCO2 58 H
pO2 120 H
HCO3 33.5 H
O2 Delivery Level
Microbiology
08/24/23 12:37 Blood/Venous Blood Culture - Preliminary
No Growth in 48 hours- Final report to follow
08/24/23 12:37 Blood/Venous Blood Culture - Preliminary
No Growth in 48 hours- Final report to follow
[2023-08-27] MEDS: NSS 1000 IV (10:19)
[2023-08-27] MEDS: PROTONIX IV 40 MG IV (10:52)
[2023-08-27] MEDS: NSS (PRESERVATIVE FREE) 10 ML IV (10:52)
--- NOTE | 2023-08-27 13:04 | CON.NEURO4 ---
Consultation - Neurology 4
-
CONSULTING PHYSICIAN: Trinity Velazquez
REFERRING PHYSICIAN: Hospitalist
DICTATED BY: Trinity Velazquez
DATE/TIME OF REQUEST: 08/27/23
DATE/TIME OF CONSULTATION: 08/27/23
Reason for Consultation: Encephalopathy
History of Present Illness:
The patient is an 83-year-old male with a past med history of epilepsy, interstitial lung disease, presenting the hospital initially after presenting to the ER was 66% on room air. He had had an ER visit 2 days ago for dehydration and was
discharged after IV hydration. He did show elevated temperature here to 100.8 range. Chest x-ray and CT chest had findings of chronic lung disease along with some suggestion of pneumonitis unable to exclude pneumonia. He has been started on
antibiotics with ceftriaxone and azithromycin. He had an episode of vomiting this morning.
There have been no recent changes in antiseizure medications he takes 700 mg of lamotrigine as well as 2000 mg of levetiracetam at night.
Patient's last seizure was around 1 year ago. Usually the occurrence of a seizure and the patient can be ascertained by postictal confusion as well as loss of urinary continence and the patient during nighttime. He follows with a [facility] neurologist
for care of epilepsy and his seizures have been strictly nocturnal.
Patient's daughter and son-in-law relate that he had very mild amount of slowing and was around 10% off his mental status yesterday evening but was awake and interactive and conversational. Today patient has shown a significant change in mental
status and even seems to be showing some signs of visual hallucinations.
No overt convulsive activity has been reported in the patient no unilateral weakness or paresthesia. He had a history of significant cardiac stents placed a couple months ago but no history of stroke or TIA.
Past Medical History: Coronary artery disease with multiple stents, nocturnal epilepsy, interstitial lung disease, GERD, aortic stenosis
Surgical History: Cardiac stent
Family History: No family history of epilepsy
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
Allergies: No known drug allergies
Review of Symptoms:
Patient denies any fever, headache, chest pain, shortness of breath, GI or symptoms.
Physical Exam:
Elderly man appears thin and cachectic appearing, no signs of head or neck trauma oropharynx is dry neck with no masses full range of motion no meningismus, heart rate regular, breath sounds with crackles bilaterally no wheezing, abdomen soft
nontender no lower extremity edema
Neurologic Examination:
Mental status shows a patient who is mildly drowsy and awakens to voice, is spontaneous speech is fluent but he does show some confusion and appropriate speech not relevant to the topics at hand, he will obey simple commands consistently, he names
simple objects consistently, repetition is intact. He will track interesting objects throughout the room. He is able to identify himself as well as his family members at the bedside.
Cranial nerve examination shows moderate dysarthria, smile is symmetric, there is no ptosis, visual martinez are intact to confrontation bilaterally and the patient tracks objects throughout the entire visual field, pupils are 3 mm equal round react
light bilaterally, tongue is midline
Motor examination shows a mild amount of asterixis with the hands held up bilaterally, no parkinsonism or rigidity, no pronator drift, shoulder abduction arm flexion hip flexion are symmetric and full strength 5/5 bilateral
Intact to noxious stimulation and light touch in a symmetric manner in both upper and lower extremity
Reflexes are absent throughout Babinski is negative bilaterally no clonus
No ataxia or dysmetria on finger-nose test
Gait examination deferred
Neuro Imaging: CT head non contrast no acute abnormalities seen, no hemorrhage, no mass, no acute infarcts
Impressions
1. Suspect a toxic metabolic encephalopathy/delirium secondary to what appears to be an acute process involving the respiratory system, accompanied by low-grade fever and with some imaging findings suggestive of pneumonitis. Neurologic
examination shows confusion and some mild asterixis supporting metabolic encephalopathy.
2. 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 Low suspicion for nonconvulsive seizures at this time but would remain in the differential given the
new encephalopathy.
3. History of coronary artery disease.
4. History interstitial lung disease
Recommendations:
1. Reasonable to obtain brain MRI without contrast given history of coronary artery disease placing him at high risk for stroke, neurologic examination without focal neurologic deficits not strongly supportive of an acute stroke
2. Check 40-60 minute EEG
3. Will continue the home doses of his antiseizure medications levetiracetam 2000 mg at night and lamotrigine 700 mg at night. If patient has problems with vomiting and p.o. intake then would need to switch levetiracetam to IV formulation and
consider a alternative medication to lamotrigine which does not have an IV formulation
4. Minimize sedating medications as able, as well as invasive measures and disturbances of sleep at night trying to keep a normal sleep schedule
5. Family that if testing supports delirium then he may have a fluctuating course and may take some time on the order of several days to gradually improve as metabolic disturbances are treated
6. Follow infectious workup.
Will follow
Discussed patient care with: Patient and his children, Dr Lezama
--- NOTE | 2023-08-27 13:23 | PTCARENOTE ---
pt wakes to name oriented to self and place sometimes time. forgetful about current condition. trying to get out of bed. nc3l. breath sounds diminished. pt nauseaous and vomitinf small amt green bile. prn meds given dr Lezama notified. pt family
at bedside. reviewed pt condition and plan of care with pt daughter and son. reviewed pt medications with son. in room with pulm and hosp doctors while they explain plan of care for pt to family. pt went to xray for abd x-ray. returned skin
tear noticed on left arm dressed. ivf running as ordered.
--- NOTE | 2023-08-27 16:11 | EEG.RPT ---
Electroencephalogram Report
Recording
Date of EE08/27/23
Type of EEG: Routine
Length of EEG recordin min
Done with Video Recording: Yes
Patient Status: Inpatient
Recording Conditions: Awake and Drowsy
Hyperventilation Performed: No
Photic Stimulation Performed: Yes
Report
LESS THAN 1 HOUR EEG REPORT
LESS THAN 1 HOUR EEG INTERPRETATION:
Mildly abnormal EEG for age in wakefulness through sleep due to mild diffuse bihemispheric slowing
CLINICAL CORRELATION:
This study was suggestive of mild diffuse cortical dysfunction without focal abnormality. No seizures were recorded.
Clinical correlation is advised.
METHODS:
A 21 channel digitized electroencephalogram (EEG) was performed at the bedside. The 10/20 international system of electrode placement was used with ECG and lateral/vertical eye movements recorded. The [employer] system was utilized.
QUALITY OF STUDY:
Fair due to muscle artifact
ELECTROENCEPHALOGRAPHER IMPRESSION(S):
Background
Amplitude: Unremarkable
Anterior-Posterior Organization: Fair, good at times
Maximum: Theta
Asymmetry: None
Sleep
Drowsiness present
Photic Stimulation
Failed to activate the record
ECG
Normal sinus rhythm
[2023-08-27] MEDS: ZOSYN 50 IV ×2 (16:22→21:11)
[2023-08-27] MEDS: ZITHROMAX INFUSION 250 IV (17:14)
[2023-08-27] MEDS: LOVENOX 40 MG SC (17:14)
[2023-08-27] MEDS: KEPPRA XR (EXTENDED RELEASE) 2000 MG PO (21:09)
[2023-08-27] MEDS: NON-FORMULARY ITEM 100 MG PO (21:10)
[2023-08-27] MEDS: NON-FORMULARY ITEM 600 MG PO (21:11)
[2023-08-27] MEDS: MIRALAX PO (21:30)
[2023-08-27] MEDS: LOPRESSOR PO (21:30)
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
[2023-08-28] MEDS: NSS 1000 IV (03:25)
[2023-08-28] MEDS: ATIVAN 0.5 MG IV (03:26)
[2023-08-28] MEDS: NSS (PRESERVATIVE FREE) 0.25 ML IV (03:26)
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
[2023-08-28] MEDS: ZOSYN 50 IV ×4 (05:08→23:18)
--- NOTE | 2023-08-28 07:36 | W.PN.HOSP.TC ---
Today's Communication/Plan
-
see bold
Assessment / Plan
Assessment / Plan
#Acute hypoxic respite sufficiency
#Possible left mid/lower PNA/Hx ILD chronic steroid-dependent
66% RA? true reading , now on 3 L, was on 4 L nasal cannula 97% -wean as tolerated
COVID negative, chest CT shows progressive chronic interstitial lung disease with pneumonitis, unable to rule out pneumonia
Appreciate pulmonology input, antibiotics changed to Zosyn and azithromycin. Procalcitonin neg
Continue bronchodilators. Pulmonology suspects recurrent aspiration, SPL consulted
Poor prognosis per pulmonology
Goals of care conversation held with daughter 08/27
#Hx ILD on chronic steroid
-Patient finished drug trial study yesterday as his heater operator helper at [facility] Dr. Edgar Miller wants him to restart Ofev
-stopped OFEv 2-3 weeks ago due to diarrhea his daughter states does come on and off of
-Pulmonology has been in contact with patient's usual heater operator helper
-Continue home prednisone 5 mg daily
# Toxic metabolic encephalopathy
Likely from viral infection with fever and vomiting
Urine analysis negative. Head CT, B12/folic acid all negative
Appreciate neurology input, EEG negative, brain MRI negative
Changed oral Keppra to IV Keppra, may consider DobHoff feeding tube for Lamictal if he does not improve
Supportive care, Seroquel oral if he can take p.o., IV Haldol as needed
Strict n.p.o. due to mentation
#Fever with vomiting
#Sepsis
Present upon admission
Suspect viral gastroenteritis
Abdominal x-ray unremarkable
Dextrose IV fluids
#Hx nocturnal epilepsy
EEG negative for seizures
Keppra 1000 mg IV twice daily, unable to receive Lamictal 700 mg at bedtime
#Acute urinary retention
ladder scan showing 1600 mL of urine, Moise inserted
#Chronic BiPAP use at bedtime
Uses full mask BiPAP with 3 L nasal cannula patient to bring own
#Hyponatremia
Improved with fluid restriction and IV fluids, continue to trend
#Daily Etoh use
drinks 2 beers daily
no concern for MSAS protocol
#GERD
Protonix 20 mg daily
#CAD
#Cardiac stent April x 2, May x at [facility] Dr aaron, pt follows with Dr Haley Galvez at [place]
-Hold aspirin, atorvastatin 80 mg daily, Plavix 75 mg daily, metoprolol tartrate 25 mg twice daily with hold parameters
#Known aortic stenosis
DVT prophylaxis
Subcu Lovenox
DNR Per pt with daughter at bedside
Updated daughter 08/27
Total time spent to see the patient on the floor, examine the patient, review data and lab results, discuss treatment plan with patient, nursing staff around 60 minutes
Physical Exam
General: No acute distress, lethargic appearing
HEENT: Normocephalic, Atraumatic, EOMI, DMM
Respiratory: Clear to Auscultation bilaterally
Cardiac: Normal S1/S2, Regular Rate and Rhythm
GI: Soft, Nontender, Nondistended, Normal Bowel Sounds
Extremities: No Clubbing, Cyanosis, or Edema
Neuro: Intermittent confusion noted
Psych: Intermittently agitated
Anticipated Discharge: > 48 hours
Subjective/Interval History
-
Date of Service: August 27, 2023
Patient was more agitated overnight. He is requiring restraints. He is having urinary retention, bladder scan shows 1600 mL.
Objective Data
-
Labs:
Laboratory Results
08/27/23
07:18
WBC 10.3
Hgb 11.3 L
Hct 35.4 L
Plt Count 205
Sodium 133 L
Potassium 4.6
Chloride 89 L
Carbon Dioxide 34 H
BUN 19
Creatinine 0.5 L
Glucose 122 H
Calcium 9.2
Vital Signs:
Vital Signs
Temp Pulse Resp BP Pulse Ox
97.8 F 84 20 105/64 95
08/27/23 08:04 08/27/23 08:04 08/27/23 08:04 08/27/23 08:04 08/27/23 10:04
I&O
08/26/23 08/27/23 08/28/23
06:59 06:59 06:59
Intake Total 260 / 260 490 / 490
Output Total 750 / 750 400 / 400
Balance -490 / -490 90 / 90
[2023-08-28] MEDS: NSS (PRESERVATIVE FREE) 10 ML IV (07:56)
[2023-08-28] MEDS: PROTONIX IV 40 MG IV (07:59)
[2023-08-28] MEDS: LIPITOR 80 MG PO (08:01)
[2023-08-28] MEDS: ASPIR LOW (ENTERIC COATED) 81 MG PO (08:01)
[2023-08-28] MEDS: MIRALAX 17 GRAMS PO (08:01)
[2023-08-28] MEDS: PLAVIX 75 MG PO (08:01)
[2023-08-28] MEDS: DELTASONE 5 MG PO (08:02)
[2023-08-28] MEDS: LOPRESSOR 25 MG PO (08:02)
[2023-08-28] MEDS: SEROQUEL 25 MG PO (08:02)
--- NOTE | 2023-08-28 08:13 | W.PN.NEURO.1 ---
Addendum entered and electronically signed by Raul Velazquez MD 08/28/23 13:14:
I saw and evaluate the patient I reviewed the note by Jena Bledsoe agree with the findings the following comments:
83-year-old male with a past ministry of nocturnal epilepsy, interstitial lung disease, coronary artery disease status post stent presented to hospital with weakness and fall and also was found to have hypoxia. He has been being treated for
possible pneumonitis versus pneumonia. Last seizure was one 1 year ago. He has been maintained on 700 mg daily lamotrigine as well as 200 mg levetiracetam both taken at night.
Acute events overnight included agitation requiring restraints as well as chemical sedation with lorazepam he has been placed on 25 mg twice daily Seroquel.
Neurologic examination shows drowsy patient arousable to pain with no focal motor deficits
EEG showed mild slowing
Brain MRI shows no acute findings no acute infarct or hemorrhage or masses or edema there is significant white matter ischemic disease of the hemispheres bilaterally indicating microvascular ischemic disease
Assessment: Patient's age and small vessel ischemic disease seen on brain MRI make him susceptible for development of delirium. Mental status changes at this time are presumed due to delirium/toxic metabolic encephalopathy probably spurred on by an
acute process in the lungs. EEG did not support any nonconvulsive seizure activity. Significant lethargy at this time prohibits much p.o. intake.
Recommendations
-If not able to take p.o. consistently by tomorrow then would plan on placing nasogastric tube as it will be important to minimize missed doses of lamotrigine. If more than 5 half-lives of lamotrigine are missed and this would necessitate
restarting the medication entirely which takes several weeks and would be not desirable for this patient (Lamotrigine must be uptitrated titrated slowly to avoid rash and Case-Eriberto syndrome)
-Agree with Seroquel, monitor for excess lethargy and adjust accordingly
-Switch Levetiracetam to 2000 mg qhs IV
-Treating acute process in the lung as able
-Discussed at beside with his daughter
Will follow
Original Note:
Today's Communication / Plan
-
.
Neuro Assessment/Plan
Assessment
This is an 83-year-old male who presented to on 08/24/23 with report of severe weakness and a fall. Pulse ox on room air in the ER was 66% and temp was 100.8. Chest x-ray and CT chest had findings of chronic lung disease along with some suggestion
of pneumonitis unable to exclude pneumonia. He has been started on antibiotics with ceftriaxone and azithromycin.
There have been no recent changes in antiseizure medications he takes 700 mg of lamotrigine as well as 2000 mg of levetiracetam at night.
Patient's last seizure was around 1 year ago. Usually the occurrence of a seizure and the patient can be ascertained by postictal confusion as well as loss of urinary continence and the patient during nighttime. He follows with a [place] neurologist
for care of epilepsy and his seizures have been strictly nocturnal.
-MRI brain 08/27/23: No evidence of acute cranial abnormality. Mild to moderate diffuse atrophy. The callosal angle appears normal, and MR findings are not considered highly suggestive of normal pressure hydrocephalus. There are no findings to suggest
encephalitis. Moderate to severe T2 and FLAIR white matter hyperintensities, including confluent signal in the periventricular region. These hyperintensities are commonly seen with aging and usually attributed to small vessel ischemic disease.
Significant progression of these hyperintensities since MRI of the brain of March 04, 2017.
-EEG 08/27/23: This study was suggestive of mild diffuse cortical dysfunction without focal abnormality. No seizures were recorded.
I. Suspect a toxic metabolic encephalopathy combined with acute delirium secondary to what appears to be an acute process involving the respiratory system, accompanied by low-grade fever and with some imaging findings suggestive of pneumonitis.
II. 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 Low suspicion for nonconvulsive seizures at this time, EEG unremarkable.
III. History of coronary artery disease.
IV. History interstitial lung disease.
V. MRI brain negative for acute abnormality.
Plan
-Patient is currently NPO due to being obtunded. Home levetiracetam 2000mg PO HS changed to 2000mg IV HS.
-Could consider switching lamotrigine to IV Vimpat while NPO; however, given very high HS dosage would strongly consider Dobbhoff placement in the next 24 hours to continue providing lamotrigine 700mg HS PO to avoid having to re-titrate up to 700mg
over several weeks due to risk of SJS, if he is off of this medication for several days.
-Minimize disturbances of sleep at night trying to keep a normal sleep schedule. Consider initiation of Seroquel if dobbhoff is placed.
-Reinforced to family that if testing supports delirium then he may have a fluctuating course and may take some time on the order of several days to gradually improve as metabolic disturbances are treated
-Follow infectious workup.
-DVT prophylaxis.
Subjective/Objective
Subjective Data
Date of Service: August 28, 2023
Patient with agitation overnight requiring IV lorazepam and 4 point restraints. This morning patient is obtunded, nonverbal, wearing oxygen via nasal cannula, and requiring catheterization for urinary retention.
Objective Data
Vital Signs
Temp Pulse Resp BP Pulse Ox
98.4 F 86 18 128/65 96
08/27/23 23:02 08/27/23 23:02 08/27/23 23:02 08/27/23 23:02 08/28/23 01:15
Sodium 133 mmol/L (135-145) L 08/27/23 07:18
Potassium 4.6 mmol/L (3.5-5.1) 08/27/23 07:18
BUN 19 mg/dl (9-20) 08/27/23 07:18
Glucose 122 mg/dl (70-99) H 08/27/23 07:18
Calcium 9.2 mg/dl (8.4-10.2) 08/27/23 07:18
Phosphorus 3.6 mg/dl (2.5-4.5) 08/27/23 07:18
Vitamin B12 843 pg/ml (265-931) 08/27/23 07:18
Patient Allergies
No Known Allergies Allergy (Verified 08/22/23 15:39)
Review of Systems
-
Unable to obtain full review of systems at this time due to: Acuity and Patient Non-verbal
Physical Exam
-
General: Appears Chronically Ill, Cachectic, Restrained and Wearing Oxygen
Eyes: PERRLA
HEENT: Normocephalic and Atraumatic
Neck: Unable to Assess
Respiratory: Other (snoring)
GI: Non-distended
Extremities: No Clubbing, No Cyanosis and No Edema
Psych: Unable to Assess (sedated)
Extended Neurological Exam
Mood & Affect: Unable to Assess
Attention Span & Concentration: Unresponsive to Verbal Stimuli and Other (moans to painful stimuli)
Memory: Unable to Assess
Tremor: Hand Tremor Absent and Head Tremor Absent
Involuntary Movement: None
Speech: Unable to Assess
Cranial Nerve II: Left Eye: Pupillary Reactivity Unremarkable, Pupillary Size Unremarkable and Unable to Assess Visual Acosta
Cranial Nerve II: Right Eye: Pupillary Reactivity Unremarkable, Pupillary Size Unremarkable and Unable to Assess Visual Acosta
Cranial Nerves III, IV, : Extraocular Movement: Unable to Assess (no apparent gaze deviation)
Cranial Nerve V: Facial Sensation: Unable to Assess
Cranial Nerve VII: Facial Symmetry: Normal Facial Symmetry
Cranial Nerve VIII: Hearing: Unable to Assess
Cranial Nerves IX, X: Palate Movement: Unable to Assess
Cranial Nerve XI: Shoulder Shrug: Unable to Assess
Cranial Nerve XII: Tongue Protusion: Unable to Assess
Muscle Strength, Overall: Spontaneously Moves
Muscle Bulk & Tone: Tone Unremarkable
Pronator Drift: Unable to Assess
Babinski Sign: Absent Bilaterally
Data Reviewed
-
CT Head: Report Reviewed and Image Reviewed
MRI Head: Report Reviewed and Image Reviewed
EEG: Report Reviewed
Labs: Report Reviewed
Reviewed with: Physician and Family
Medications
-
Active Medications
Generic Name Dose Route Start Last Admin
Trade Name Freq PRN Reason Stop Dose Admin
Acetaminophen 650 mg 08/24/23 17:49
Acetaminophen 325 Mg Tablet PO 09/21/23 17:48
Q4HPRN PRN
mild pain/HOBBS/temp> 100.4F
Aspirin 81 mg 08/25/23 08:00 08/28/23 08:01
Aspirin 81 Mg (Enteric Coated) Tablet PO 09/22/23 07:59 81 mg
DAILY BETTY Administration
Atorvastatin Calcium 80 mg 08/25/23 08:00 08/28/23 08:01
Atorvastatin (Lipitor) 80 Mg Tablet PO 09/22/23 07:59 80 mg
DAILY BETTY Administration
Clopidogrel Bisulfate 75 mg 08/25/23 08:00 08/28/23 08:01
Clopidogrel 75 Mg Tablet PO 09/22/23 07:59 75 mg
DAILY BETTY Administration
Enoxaparin Sodium 40 mg 08/24/23 18:00 08/27/23 17:14
Enoxaparin Sodium 40 Mg/0.4 Ml Syringe SC 09/21/23 17:59 40 mg
QPM BETTY Administration
Haloperidol Lactate 1 mg 08/28/23 07:43
Haloperidol 5 Mg/Ml 1 Ml Vial IV 09/25/23 07:42
Q4HPRN PRN
agitation
Azithromycin 500 mg in 250 mls @ 250 mls/hr 08/26/23 14:00 08/27/23 17:14
Zithromax Infusion IV 250 mls
Q24H BETTY Administration
Piperacillin Sod/Tazobactam Sod 3.375 gram in 50 mls @ 100 mls/hr 08/28/23 12:00 08/28/23 11:38
Zosyn IV 50 mls
Q6 BETTY Administration
Dextrose/Sodium Chloride 1,000 mls @ 75 mls/hr 08/28/23 10:00 08/28/23 09:57
D5/0.9% Sodium Chloride IV 1,000 mls
.[id number] BETTY Administration
Levetiracetam 2,000 mg 08/28/23 20:00
Levetiracetam (100 Mg/Ml) 500 Mg/5 Ml Vial IV 09/25/23 19:59
2000 BETTY
Metoprolol Tartrate 25 mg 08/24/23 20:00 08/28/23 08:02
Metoprolol 25 Mg Regular Release Tablet PO 09/21/23 19:59 25 mg
BID BETTY Administration
Pt's Own Med 0 mg 08/24/23 22:00 08/27/23 21:10
Lamotrigine 100 Mg PO 09/21/23 21:59 100 mg
Tablet Er - 1 Tab Po HS BETTY Administration
Hs
Pt's Own Med 0 mg 08/24/23 22:00 08/27/23 21:11
Lamotrigine 300 Mg PO 09/21/23 21:59 600 mg
Tablet Er 2 Tabs Po HS BETTY Administration
Hs
Pantoprazole Sodium 40 mg 08/27/23 11:00 08/28/23 07:59
Pantoprazole Sodium 40 Mg/10 Ml Vial IV 09/24/23 10:59 40 mg
DAILY BETTY Administration
Polyethylene Glycol 17 grams 08/26/23 13:00 08/28/23 08:01
Polyethylene Glycol Powder 17 Grams Packet PO 09/23/23 12:59 17 grams
BID BETTY Administration
Prednisone 5 mg 08/25/23 08:00 08/28/23 08:02
Prednisone 5 Mg Tablet PO 09/22/23 07:59 5 mg
DAILY BETTY Administration
Promethazine HCl 25 mg 08/26/23 12:58 08/27/23 08:04
Promethazine 25 Mg Tablet PO 09/23/23 12:57 25 mg
Q6HPRN PRN Administration
nausea
Quetiapine Fumarate 25 mg 08/28/23 08:00 08/28/23 08:02
Quetiapine 25 Mg Tablet PO 09/25/23 07:59 25 mg
BID BETTY Administration
Sodium Chloride 0 flush 08/24/23 19:00
Sodium Chloride 0.9% (Flush) Syringe IV 09/21/23 18:59
PER PROTOCOL BETTY
Sodium Chloride 10 ml 08/27/23 11:00 08/28/23 07:56
Sodium Chloride 0.9% (Preservative Free) 10 Ml Vial IV 09/24/23 10:59 10 ml
DAILY BETTY Administration
Home Medications
�Medication �Instructions �Recorded
lamotrigine 300 mg tablet,extended 600 mg PO HS Seizures 09/24/17
release 24 hr
lamotrigine 100 mg tablet,extended 100 mg PO HS Seizures 09/08/22
release 24 hr
pantoprazole 20 mg tablet,delayed 20 mg PO DAILY Gastrointestinal 09/08/22
release Issue
prednisone 10 mg tablet 5 mg PO DAILY Autoimmune Disorder 09/08/22
aspirin 81 mg tablet,delayed 81 mg PO DAILY Blood Clot 08/24/23
release Prevention/Tx
atorvastatin 80 mg tablet 80 mg PO DAILY High Cholesterol 08/24/23
clopidogrel 75 mg tablet 75 mg PO DAILY Blood Clot 08/24/23
Prevention/Tx
levetiracetam 500 mg 2,000 mg PO HS Seizures 08/24/23
tablet,extended release 24 hr
metoprolol tartrate 25 mg tablet 25 mg PO BID Blood Pressure 08/24/23
nitroglycerin 0.4 mg sublingual 0.4 mg sublingual [id number] PRN 08/24/23
tablet chest pain
[2023-08-28 08:34] LABS: Hematocrit 33.3 % (39.0-52.0); Hemoglobin 10.8 g/dL (13.0-18.0); Mean Corp Hgb Conc. 32.4 g/dL (33.0-37.0); Mean Corpuscular Volume 95.7 fL (80.0-94.0); Platelet Count 191 10^3/uL (130-400); Red Blood Cell Count 3.48 10^6/uL (4.70-6.10); Red Cell Dist. Width 14.2 % (11.5-14.5); White Blood Cell Count 9.3 10^3/uL (4.8-10.8)
[2023-08-28 09:00] LABS: Blood Urea Nitrogen 18 mg/dl (9-20); Calcium 8.4 mg/dl (8.4-10.2); Carbon Dioxide 37 mmol/L (22-30); Chloride 91 mmol/L (98-107); Estimated Creatinine Clearance 75 ml/min; Glucose 110 mg/dl (70-99); Potassium 4.3 mmol/L (3.5-5.1); Sodium 135 mmol/L (135-145); eGFR > 60.00
--- NOTE | 2023-08-28 09:29 | W.PN.PUL.V3 ---
Today's Communication / Plan
-
Continue antibiotics.
Aspiration precautions.
Speech therapy evaluation when more lucid.
Neurology evaluation noted.
We not seen.
No change in prednisone
Assessment
-
83-year-old male with past medical history noted, on low-dose chronic steroids for interstitial lung disease. Also on antifibrotic therapy Ofev, follows up at [facility]. Came to the hospital after falling off of bed. Found to be
hypoxemic. Recently seen in the emergency room for dehydration as well. Recently stopped off of due to diarrhea about 2 to 3 weeks ago. Chest x-ray showed new left sided infiltrate on top of interstitial changes that are chronic.
Respiratory insufficiency likely due to pneumonia on top of interstitial lung disease. Requiring 4 L of supplemental oxygen.
CXR:
-New extensive ground-glass opacity throughout the left mid and lower lung. Diagnostic possibilities are (1) SEVERE PNEUMONIA or (2) acute inflammatory pneumonitis.
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
mediastinal shift and elevation of the right hemidiaphragm.
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
Pulmonary cachexia
Toxic metabolic encephalopathy
Conditions present prior admission:
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 No details available.
5 mg of prednisone.
Patient stopped Ofev 2-3 weeks ago due to diarrhea
Not usually on supplemental oxygen.
Nocturnal BiPAP-2 L at bedtime.
Epilepsy
GERD
Coronary Artery disease
Aortic stenosis
Prior cardiac stents
Former smoker
Daily drinker-2 beers per day.
Plan
Pulmonary status has declined-suspect recurrent aspiration
Respiratory status tenuous with aspiration, increased FiO2 requirements
Wean supplemental oxygen-has home oxygen but only uses it at night-currently on 3 L-94% saturation
Nocturnal BiPAP with 2 L of oxygen
Aspiration precautions
Incentive spirometry
Mucolytic's
Mucus clearing devices
Continue outpatient prednisone 5 mg daily
Hesitate placing the patient on high-dose steroid initiation due to significant mental status changes-also after review with [facility] lean manager they do believe it's UIP, which usually does not respond to steroids
ABG 08/26/23--58/120/7.37-suspect baseline PCO2.
Monitor mental status-Toxic metabolic encephalopathy suspected
ABG does not explain hypercapnic explanation for mental status changes.
CT head 08/26/23-no acute abnormalities
Brain MRI 08/27/23-no evidence of acute intracranial abnormalities,
Neurology evaluation noted-correspondence reviewed.
EEG without seizure
Cultures reviewed
Unable to produce sputum
Empiric antibiotics-ceftriaxone and azithromycin--changed from ceftriaxone to Zosyn
Consider broadening antibiotics with recurrent aspiration
Follow radiographically-last chest x-ray 08/25/23
Nausea and emesis-Improved
Aspiration precautions.
Anti-emetics as needed.
Abdominal flat plate 08/27/23-nonspecific, nonobstructed intestinal bowel gas pattern
DVT prophylaxis-on Lovenox
GI prophylaxis-on pantoprazole
Nutrition
Early mobilization
Dr. Brewer reviewed with daughter over the phone-08/26/23 she asked if I will call Dr. Miller at [facility]-daughter will attempt to provide me with number to call and then I will place phone call
Dr. Brewer reviewed with daughter at the bedside 08/27/23-explained end-stage nature of his pulmonary fibrosis, multiple comorbidities, deconditioning, malnutrition and potential/probable insurmountable obstacles-explained to the patient may not
survive hospitalization-she was tearful, but understanding..
Dr. Brewer reviewed with daughter at the bedside 08/28/23-explained toxic metabolic encephalopathy, current stability of pulmonary status, suspected aspiration pneumonia, change of antibiotics, and supportive care needed with an emphasis on comfort
Patient is a DNR status
Outpatient pulmonary [id number] at [facility]-Dr. Miller
Reviewed with nursing as well as primary service.
Pulmonary communications:
Dr. Brewer spoke to Dr. Jesu Miller at [facility]-cell phone #[phone]- On 08/26/23. The patient had seen a couple lean manager and eventually landed at [facility] and Dr. Miller's clinic. He was on low-dose prednisone and Ofev which she was tolerating
well. Because of ongoing deterioration. The patient went to [facility] and was enrolled in a phase 3 trial, which caused significant diarrhea (trial drug in addition to Ofev) and the trial medication was discontinued. The plan was to restart
Ofev in the near future. I reviewed the clinical course thus far. Dr. Miller did not have any additional recommendations. With metabolic encephalopathy. He agreed high-dose steroids would not be in patient's best interest. He recommended ongoing
antibiotics and supportive care. I will discuss with daughter that I reviewed the case with Dr. Marie in to offer some confidence in his care.

Diagnosis section reviewed:
Echocardiogram 09/04/2021: Normal left ventricular size and function. No regional wall motion abnormalities. Mild LVH. Ejection fraction 55-60%. Normal biventricular size and function.
Mild aortic stenosis.
Subjective Data
-
Date of Service:
Date of Service: August 28, 2023
Chief Complaint: Pulmonary Follow Up and Dyspnea Follow Up
Subjective:
, Confused, agitated, delirium, no worsening shortness of breath
Review of Systems
General: Other ( per HPI)
Objective Data
Data Reviewed
Vital Signs / I&O:
Vital Signs
Temp Pulse Resp BP Pulse Ox
98.4 F 86 18 128/65 96
08/27/23 23:02 08/27/23 23:02 08/27/23 23:02 08/27/23 23:02 08/28/23 01:15
Intake and Output
08/27/23 08/28/23 08/29/23
06:59 06:59 06:59
Intake Total 490 / 490 1180 / 1180
Output Total 400 / 400 300 / 300
Balance 90 / 90 880 / 880
SaO2: 96
Nasal Cannula flow liters per minute: 2
Physical Exam
General: Respiratory Distress (n) and Comfortable
HEENT: Normocephalic, Anicteric and Moist Mucous Membranes
Cardiovascular: Regular Rhythm
Respiratory: Wheeze (n), Crackles (Bilateral bases left greater than right), Rhonchi (n), Non-Labored Respirations, Accessory Resp Muscle Use (n) and Stridor (n)
GI: Soft, Non Distended and Non Tender
Neurology: Awake, Alert, No Motor Deficits, Lethargic and Other ( confused and delusional at times)
Skin: Warm, Good Color, Cyanosis (n), Jaundice (n) and Rash
Labs/Micro/Reports
Lab Data
08/28/23 07:40
08/28/23 07:40
Microbiology
08/24/23 12:37 Blood/Venous Blood Culture - Preliminary
No Growth in 72 hours- Final report to follow
08/24/23 12:37 Blood/Venous Blood Culture - Preliminary
No Growth in 72 hours- Final report to follow
[2023-08-28] MEDS: D5/0.9% SODIUM CHLORIDE 1000 IV (09:57)
[2023-08-28] MEDS: KEPPRA 1000 MG IV ×2 (09:57→20:13)
[2023-08-28] MEDS: ZITHROMAX INFUSION 250 IV (14:12)
--- NOTE | 2023-08-28 14:21 | CM ---
CM reviewed chart, patient on four point restraints due to behaviors. Neuro following. SNF referrals sent, [facility] able to accept, updated on patient status. CM will continue to follow for all discharge planning needs.
Plan; SNF when medically stable, will need auth, once off restraints.
[2023-08-28 15:00] VITALS: BP 104/53
[2023-08-28] MEDS: LOVENOX 40 MG SC (17:25)
[2023-08-28] MEDS: SEROQUEL PO (20:21)
[2023-08-28] MEDS: NON-FORMULARY ITEM PO ×2 (21:41)
[2023-08-28 23:32] VITALS: BP 111/53
[2023-08-29] MEDS: D5/0.9% SODIUM CHLORIDE 1000 IV ×3 (01:17→22:23)
[2023-08-29] MEDS: ZOSYN 50 IV ×3 (05:26→17:26)
[2023-08-29 06:06] VITALS: BP 109/63
--- NOTE | 2023-08-29 06:49 | W.PN.UPDATE ---
Update Note
Progress Note Update
RN notified MULE RIDER changes noted in EKG. Labs ordered. Attending notified.
[2023-08-29 07:00] VITALS: BP 113/63
--- NOTE | 2023-08-29 07:20 | PTCARENOTE ---
Scheduled 6am EKG performed on Patient. Results showed Normal sinus Rhythm, but lateral infarct, age un determined, however, based on the report for it, it says the infarct finding is new. Vitals stable BP: 109/63, Temp 98.8 Orally,hr 90, Resp 20,
and 02 95% @ 4 liters. banquet server on call SHIRT MAKER notified. Per SHIRT MAKER, Lateral Infarct is unchanged from yesterdays EKG. No acute finding as per SHIRT MAKER. Notified day shift RN and RN employment supervisor as well. RN Front End Alignment Specialist defers to provider.
--- NOTE | 2023-08-29 08:02 | W.PN.NEURO.1 ---
Addendum entered and electronically signed by Raul Velazquez MD 08/29/23 13:16:
I saw and evaluate the patient I reviewed the note by Jena Bledsoe agree with the findings the following comments:
83-year-old male with a past medical history of nocturnal disease, coronary artery disease and stenting hospital initially with fall and was found to have hypoxia suspected to have pneumonitis versus pneumonia and was started on antibiotics.
Patient developed worsening mental status 1 to 2 days after admission and had significant mental status change along with agitation. Workup including MRI brain and EEG did not show any evidence of seizure or new structural significant abnormality
in the brain.
Patient was not able to take last night's lamotrigine but has been able to continue on levetiracetam and IV form. Normally takes 700 mg lamotrigine at night and 2000 mg levetiracetam at night, last seizure was around 1 year ago.
Mental status markedly improved this morning compared to yesterday.
Neurologic examination shows some mild confusion and sometimes tangential thinking not quite relevant to the conversation at hand, wide-awake and much clearer compared to yesterday with no evidence of aphasia. Cranial nerves are intact, small
amount of asterixis with the shoulders abducted and wrist extended.
EEG and MRI brain reviewed
Assessment: Delirium/toxic metabolic encephalopathy probably spurred on by acute process in the lung in an elderly patient with some pre-existing small vessel ischemic disease in the brain creating disposition towards confusion with acute illness.
No evidence of an unwitnessed seizure.
Recommendations
-Continuing low-dose Seroquel 12.5 mg twice daily is reasonable, monitor for excess drowsiness, EKG was checked and QTc not in a concerning range
-Would resume the 700 mg nightly p.o. lamotrigine
-Can switch levetiracetam to 2000 mg p.o.
-Continue treating lung process as able
-Discussed with family that would be expected and not unusual to see some degree of fluctuations in mental status as is the usual with delirium
Will follow peripherally
Original Note:
Today's Communication / Plan
-
.
Neuro Assessment/Plan
Assessment
This is an 83-year-old male who presented to on 08/24/23 with report of severe weakness and a fall. Pulse ox on room air in the ER was 66% and temp was 100.8. Chest x-ray and CT chest had findings of chronic lung disease along with some suggestion
of pneumonitis unable to exclude pneumonia. He has been started on antibiotics with ceftriaxone and azithromycin.
There have been no recent changes in antiseizure medications he takes 700 mg of lamotrigine as well as 2000 mg of levetiracetam at night.
Patient's last seizure was around 1 year ago. Usually the occurrence of a seizure and the patient can be ascertained by postictal confusion as well as loss of urinary continence and the patient during nighttime. He follows with a [place] neurologist
for care of epilepsy and his seizures have been strictly nocturnal.
-MRI brain 08/27/23: No evidence of acute cranial abnormality. Mild to moderate diffuse atrophy. The callosal angle appears normal, and MR findings are not considered highly suggestive of normal pressure hydrocephalus. There are no findings to suggest
encephalitis. Moderate to severe T2 and FLAIR white matter hyperintensities, including confluent signal in the periventricular region. These hyperintensities are commonly seen with aging and usually attributed to small vessel ischemic disease.
Significant progression of these hyperintensities since MRI of the brain of March 04, 2017.
-EEG 08/27/23: This study was suggestive of mild diffuse cortical dysfunction without focal abnormality. No seizures were recorded.
I. Suspect a toxic metabolic encephalopathy combined with acute delirium secondary to what appears to be an acute process involving the respiratory system, accompanied by low-grade fever and with some imaging findings suggestive of pneumonitis;
improving.
II. 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 Low suspicion for nonconvulsive seizures at this time, EEG unremarkable.
III. History of coronary artery disease.
IV. History interstitial lung disease.
V. MRI brain negative for acute abnormality.
Plan
-Patient cleared for pills in applesauce per [facility] restart home seizure medications tonight, Levetiracetam 2000mg PO HS and lamotrigine 700mg PO HS.
-Minimize disturbances of sleep at night, discourage daytime napping, and ensure adequate daylight exposure trying to keep a normal sleep schedule.
-Reinforced to family that if testing supports delirium then he may have a fluctuating course and may take some time on the order of several days to gradually improve as metabolic disturbances are treated.
-Follow infectious workup.
-DVT prophylaxis.
-Will follow as-needed, please contact our Neurology service with any questions/concerns.
Subjective/Objective
Subjective Data
Date of Service: August 29, 2023
Patient drastically improved from a neurological standpoint today. Awake, alert, and oriented. Pleasant, cooperative, and following commands. He denies any headache, dizziness, vision changes, speech/swallow difficulty, numbness, focal weakness,
nausea, chest pain, and palpitations. He is wearing oxygen via nasal cannula, appears dyspneic with prolonged conversation.
Objective Data
Vital Signs
Temp Pulse Resp BP Pulse Ox
98.8 F 90 20 109/63 95
08/29/23 06:06 08/29/23 06:06 08/29/23 06:06 08/29/23 06:06 08/29/23 06:06
Sodium 135 mmol/L (135-145) 08/28/23 07:40
Potassium 4.3 mmol/L (3.5-5.1) 08/28/23 07:40
BUN 18 mg/dl (9-20) 08/28/23 07:40
Glucose 110 mg/dl (70-99) H 08/28/23 07:40
Calcium 8.4 mg/dl (8.4-10.2) 08/28/23 07:40
Phosphorus 3.6 mg/dl (2.5-4.5) 08/27/23 07:18
Vitamin B12 843 pg/ml (239-931) 08/27/23 07:18
Patient Allergies
No Known Allergies Allergy (Verified 08/22/23 15:39)
Review of Systems
-
History Source: Patient
EENT: Negative Blurry Vision, Decreased Vision or Swallowing Difficulty
Respiratory: Negative Cough or Trouble Breathing
Cardiac: Negative Chest Pain or Palpitations
Abdomen/GI: Negative Nausea
Genitourinary: Difficulty Voiding (catheter)
Neuro: Negative Dizzy, Headache, Weakness, Numbness, Ataxia, Tremors or Speech Problem
Physical Exam
-
General: No Apparent Distress and Cachectic
Eyes: No Ptosis and PERRLA
HEENT: Normocephalic and Atraumatic
Neck: Full Range of Motion
Respiratory: Negative No Dyspnea
GI: Non-distended
Extremities: No Clubbing, No Cyanosis and No Edema
Extended Neurological Exam
Mood & Affect: Mood Unremarkable and Affect Unremarkable
Attention Span & Concentration: Awake, Alert and Interactive
Memory: Unremarkable (AAOx3) and Able to Recall (recall reduced to recent events.)
Involuntary Movement: Asterixis
Speech: Quality Unremarkable, Quantity Unremarkable and Rate of Production Unremarkable
Cranial Nerve II: Left Eye: Pupillary Reactivity Unremarkable, Pupillary Size Unremarkable and Visual Acosta Intact
Cranial Nerve II: Right Eye: Pupillary Reactivity Unremarkable, Pupillary Size Unremarkable and Visual Acosta Intact
Cranial Nerves III, IV, : Extraocular Movement: Extraocular Movement Full in all Directions
Cranial Nerve VII: Facial Symmetry: Normal Facial Symmetry
Cranial Nerve VIII: Hearing: Grossly Reduced
Cranial Nerve XII: Tongue Protusion: Midline
Muscle Strength, Overall: Full Throughout
Muscle Bulk & Tone: Bulk Unremarkable and Tone Unremarkable
Pronator Drift: No Drift in Upper Extremities and No Drift in Lower Extremities
Coordination: [id number] Testing Unremarkable
Data Reviewed
-
CT Head: Report Reviewed and Image Reviewed
MRI Head: Report Reviewed and Image Reviewed
EEG: Report Reviewed
Labs: Report Reviewed
Reviewed with: Physician, Patient and Family
Medications
-
Active Medications
Generic Name Dose Route Start Last Admin
Trade Name Freq PRN Reason Stop Dose Admin
Acetaminophen 650 mg 08/24/23 17:49
Acetaminophen 325 Mg Tablet PO 09/21/23 17:48
Q4HPRN PRN
mild pain/HOBBS/temp> 100.4F
Aspirin 81 mg 08/25/23 08:00 08/28/23 08:01
Aspirin 81 Mg (Enteric Coated) Tablet PO 09/22/23 07:59 81 mg
DAILY BETTY Administration
Atorvastatin Calcium 80 mg 08/25/23 08:00 08/29/23 08:26
Atorvastatin (Lipitor) 80 Mg Tablet PO 09/22/23 07:59 Not Given
DAILY BETTY
Clopidogrel Bisulfate 75 mg 08/25/23 08:00 08/28/23 08:01
Clopidogrel 75 Mg Tablet PO 09/22/23 07:59 75 mg
DAILY BETTY Administration
Enoxaparin Sodium 40 mg 08/24/23 18:00 08/28/23 17:25
Enoxaparin Sodium 40 Mg/0.4 Ml Syringe SC 09/21/23 17:59 40 mg
QPM BETTY Administration
Haloperidol Lactate 1 mg 08/28/23 07:43
Haloperidol 5 Mg/Ml 1 Ml Vial IV 09/25/23 07:42
Q4HPRN PRN
agitation
Azithromycin 500 mg in 250 mls @ 250 mls/hr 08/26/23 14:00 08/28/23 14:12
Zithromax Infusion IV 250 mls
Q24H BETTY Administration
Piperacillin Sod/Tazobactam Sod 3.375 gram in 50 mls @ 100 mls/hr 08/28/23 12:00 08/29/23 05:26
Zosyn IV 50 mls
Q6 BETTY Administration
Dextrose/Sodium Chloride 1,000 mls @ 75 mls/hr 08/28/23 10:00 08/29/23 01:17
D5/0.9% Sodium Chloride IV 1,000 mls
.[id number] BETTY Administration
Levetiracetam 2,000 mg 08/29/23 20:00
Levetiracetam (100 Mg/Ml) 500 Mg/5 Ml Vial IV 09/26/23 19:59
2000 BETTY
Metoprolol Tartrate 25 mg 08/24/23 20:00 08/28/23 08:02
Metoprolol 25 Mg Regular Release Tablet PO 09/21/23 19:59 25 mg
BID BETTY Administration
Non-Formulary Medication 0 mg 08/29/23 09:55 08/29/23 10:11
Lamotrigine PO 09/26/23 09:54 Not Given
DAILY BETTY
Non-Formulary Medication 0 mg 08/29/23 09:55 08/29/23 10:11
Lamotrigine PO 09/26/23 09:54 Not Given
DAILY BETTY
Pantoprazole Sodium 40 mg 08/27/23 11:00 08/29/23 08:27
Pantoprazole Sodium 40 Mg/10 Ml Vial IV 09/24/23 10:59 40 mg
DAILY BETTY Administration
Polyethylene Glycol 17 grams 08/26/23 13:00 08/28/23 08:01
Polyethylene Glycol Powder 17 Grams Packet PO 09/23/23 12:59 17 grams
BID BETTY Administration
Prednisone 5 mg 08/25/23 08:00 08/29/23 08:26
Prednisone 5 Mg Tablet PO 09/22/23 07:59 Not Given
DAILY BETTY
Promethazine HCl 25 mg 08/26/23 12:58 08/27/23 08:04
Promethazine 25 Mg Tablet PO 09/23/23 12:57 25 mg
Q6HPRN PRN Administration
nausea
Quetiapine Fumarate 12.5 mg 08/29/23 20:00
Quetiapine 25 Mg Tablet PO 09/26/23 19:59
BID BETTY
Sodium Chloride 0 flush 08/24/23 19:00
Sodium Chloride 0.9% (Flush) Syringe IV 09/21/23 18:59
PER PROTOCOL BETTY
Sodium Chloride 10 ml 08/27/23 11:00 08/29/23 08:27
Sodium Chloride 0.9% (Preservative Free) 10 Ml Vial IV 09/24/23 10:59 10 ml
DAILY BETTY Administration
Home Medications
�Medication �Instructions �Recorded
lamotrigine 300 mg tablet,extended 600 mg PO HS Seizures 09/24/17
release 24 hr
lamotrigine 100 mg tablet,extended 100 mg PO HS Seizures 09/08/22
release 24 hr
pantoprazole 20 mg tablet,delayed 20 mg PO DAILY Gastrointestinal 09/08/22
release Issue
prednisone 10 mg tablet 5 mg PO DAILY Autoimmune Disorder 09/08/22
aspirin 81 mg tablet,delayed 81 mg PO DAILY Blood Clot 08/24/23
release Prevention/Tx
atorvastatin 80 mg tablet 80 mg PO DAILY High Cholesterol 08/24/23
clopidogrel 75 mg tablet 75 mg PO DAILY Blood Clot 08/24/23
Prevention/Tx
levetiracetam 500 mg 2,000 mg PO HS Seizures 08/24/23
tablet,extended release 24 hr
metoprolol tartrate 25 mg tablet 25 mg PO BID Blood Pressure 08/24/23
nitroglycerin 0.4 mg sublingual 0.4 mg sublingual [id number] PRN 08/24/23
tablet chest pain
[2023-08-29] MEDS: DELTASONE PO (08:26)
[2023-08-29] MEDS: LIPITOR PO (08:26)
[2023-08-29] MEDS: NSS (PRESERVATIVE FREE) 10 ML IV (08:27)
[2023-08-29] MEDS: PROTONIX IV 40 MG IV (08:27)
[2023-08-29] MEDS: SEROQUEL PO (08:29)
[2023-08-29 08:30] LABS: Hematocrit 34.6 % (39.0-52.0); Mean Corp Hgb Conc. 31.8 g/dL (33.0-37.0); Mean Corpuscular Hgb 31.3 pg (27.0-31.0); Mean Corpuscular Volume 98.6 fL (80.0-94.0); Mean Platelet Volume 9.2 fL (7.4-10.4); Platelet Count 170 10^3/uL (130-400); Red Blood Cell Count 3.51 10^6/uL (4.70-6.10); Red Cell Dist. Width 14.2 % (11.5-14.5); White Blood Cell Count 8.7 10^3/uL (4.8-10.8)
--- NOTE | 2023-08-29 08:35 | PTOTSP ---
Speech Language Pathology
Pt seen for clinical bedside swallow evaluation. P.O. trials of puree and thin liquids provided. Initially with confusion with what to do when liquid in oral cavity. He swished liquid around, tilted head back, and spit partially out, swallowing
the rest with resultant coughing episode. Suspect aspiration. Also spit out first bite of puree secondary to cognitive status. Verbal cueing and model for swallowing completed, and then pt able to initiate swallow. Prolonged bolus formation and
A-P transit noted with puree, but able to fully clear oral cavity. Intermittent throat clearing noted with thin liquids. Unsure if related to liquids, baseline cough, or loosening of secretions.
Recommend:
(1) Initiate IDDSI Level 4 Solids (Puree) and Thin Liquids
(2) Aspiration precautions: sit upright, slow rate single sips (pinch straw to ensure single sips), full supervision, ensure oral cavity clear post P.O. intake
(3) Meds whole in puree
(4) Would benefit from VSE once mentation improved and closer to baseline. Would not recommend yet
(5) WEATHER TEACHER to continue to follow
--- NOTE | 2023-08-29 08:46 | W.PN.HOSP.TC ---
Today's Communication/Plan
-
see bold
Assessment / Plan
Assessment / Plan
#Acute hypoxic respite sufficiency
#Possible left mid/lower PNA/Hx ILD chronic steroid-dependent
66% RA? true reading , now on 3 L, was on 4 L nasal cannula 97% -wean as tolerated
COVID negative, chest CT shows progressive chronic interstitial lung disease with pneumonitis, unable to rule out pneumonia
Appreciate pulmonology input, antibiotics changed to Zosyn and azithromycin. Procalcitonin neg
Continue bronchodilators. Pulmonology suspects recurrent aspiration, SPL cleared for pureed diet w/ thin liquids 08/28
Poor prognosis per pulmonology
Goals of care conversation held with daughter 08/27
#Hx ILD on chronic steroid
-Patient finished drug trial study yesterday as his vulnerability researcher at [facility] Dr. Edgar Miller wants him to restart Ofev
-stopped OFEv 2-3 weeks ago due to diarrhea his daughter states does come on and off of
-Pulmonology has been in contact with patient's usual vulnerability researcher
-Continue home prednisone 5 mg daily
# Toxic metabolic encephalopathy
Likely from viral infection with fever and vomiting
Urine analysis negative. Head CT, B12/folic acid all negative
Appreciate neurology input, EEG negative, brain MRI negative
Continue IV Keppra, po lamictal
Supportive care, Seroquel oral if he can take p.o., IV Haldol as needed
#Fever with vomiting
#Sepsis
Present upon admission
Suspect viral gastroenteritis
Abdominal x-ray unremarkable
Dextrose IV fluids
#Hx nocturnal epilepsy
EEG negative for seizures
Keppra 1000 mg IV twice daily, po Lamictal 700 mg at bedtime
#Acute urinary retention
ladder scan showing 1600 mL of urine, Moise inserted
Started Flomax 0.4 mg daily 08/28
#Abnormal EKG
Trend trop, check echo
#CAD
#Cardiac stent April x 2, May x 1 at [facility] [address] aaron, pt follows with Dr Haley Galvez at [facility]
-Resume aspirin, atorvastatin 80 mg daily, Plavix 75 mg daily, metoprolol tartrate 25 mg twice daily with hold parameters
#Chronic BiPAP use at bedtime
Uses full mask BiPAP with 3 L nasal cannula patient to bring own
#Hyponatremia
Improved with fluid restriction and IV fluids, continue to trend
#Daily Etoh use
drinks 2 beers daily
no concern for MSAS protocol
#GERD
PPI
#Known aortic stenosis
DVT prophylaxis
Subcu Lovenox
DNR Per pt with daughter at bedside
Updated daughter 08/28
Total time spent to see the patient on the floor, examine the patient, review data and lab results, discuss treatment plan with patient, nursing staff around 51 minutes
Physical Exam
General: No acute distress, lethargic appearing
HEENT: Normocephalic, Atraumatic, EOMI, DMM
Respiratory: Clear to Auscultation bilaterally
Cardiac: Normal S1/S2, Regular Rate and Rhythm
GI: Soft, Nontender, Nondistended, Normal Bowel Sounds
Extremities: No Clubbing, Cyanosis, or Edema
Neuro: Intermittent confusion noted
Psych: Intermittently agitated
Anticipated Discharge: > 48 hours
Subjective/Interval History
-
Date of Service: August 29, 2023
Patient improved today. He is more alert, awake. No fever, no vomiting.
Objective Data
-
Labs:
Laboratory Results
08/29/23
07:04
WBC 8.7
Hgb 11.0 L
Hct 34.6 L
Plt Count 170
Sodium Pending
Potassium Pending
Chloride Pending
Carbon Dioxide Pending
BUN Pending
Creatinine Pending
Glucose Pending
Calcium Pending
Vital Signs:
Vital Signs
Temp Pulse Resp BP Pulse Ox
98.8 F 90 20 109/63 95
08/29/23 06:06 08/29/23 06:06 08/29/23 06:06 08/29/23 06:06 08/29/23 06:06
I&O
08/28/23 08/29/23 08/30/23
06:59 06:59 06:59
Intake Total 1180 / 1180 340 / 340
Output Total 300 / 300 750 / 750
Balance 880 / 880 -410 / -410
--- NOTE | 2023-08-29 09:22 | W.PN.PUL.V3 ---
Today's Communication / Plan
-
Wean oxygen
Metabolic encephalopathy improved
Aspiration precautions/eventual video swallow-reviewed with speech
Updated daughter
Assessment
-
83-year-old male with past medical history noted, on low-dose chronic steroids for interstitial lung disease. Also on antifibrotic therapy Ofev, follows up at [facility]. Came to the hospital after falling off of bed. Found to be
hypoxemic. Recently seen in the emergency room for dehydration as well. Recently stopped off of due to diarrhea about 2 to 3 weeks ago. Chest x-ray showed new left sided infiltrate on top of interstitial changes that are chronic.
Respiratory insufficiency likely due to pneumonia on top of interstitial lung disease. Requiring 4 L of supplemental oxygen.
CXR:
-New extensive ground-glass opacity throughout the left mid and lower lung. Diagnostic possibilities are (1) SEVERE PNEUMONIA or (2) acute inflammatory pneumonitis.
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
mediastinal shift and elevation of the right hemidiaphragm.
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
Pulmonary cachexia
Toxic metabolic encephalopathy
Conditions present prior admission:
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 No details available.
5 mg of prednisone.
Patient stopped Ofev 2-3 weeks ago due to diarrhea
Not usually on supplemental oxygen.
Nocturnal BiPAP-2 L at bedtime.
Epilepsy
GERD
Coronary Artery disease
Aortic stenosis
Prior cardiac stents
Former smoker
Daily drinker-2 beers per day.
Plan
Pulmonary status somewhat stable-aspiration suspected
Respiratory status tenuous with aspiration, increased FiO2 requirements
Wean supplemental oxygen-has home oxygen but only uses it at night-currently on 3 L-94% saturation
Nocturnal BiPAP with 2 L of oxygen-refused on occasion
Aspiration precautions
Incentive spirometry
Mucolytic's
Mucus clearing devices
Continue outpatient prednisone 5 mg daily
Hesitate placing the patient on high-dose steroids due to significant mental status changes-also after Dr. Brewer reviewed with [facility] resident caregiver they do believe it's UIP, which usually does not usually respond to steroids
ABG 08/26/23--58/120/7.37-suspect baseline PCO2.
Monitor mental status-Toxic metabolic encephalopathy suspected-improved in the last 24 hours
ABG does not explain hypercapnic explanation for mental status changes.
CT head 08/26/23-no acute abnormalities
Brain MRI 08/27/23-no evidence of acute intracranial abnormalities,
Neurology evaluation noted-correspondence reviewed.
EEG without seizure
Cultures reviewed
Unable to produce sputum
Empiric antibiotics-ceftriaxone and azithromycin--changed from ceftriaxone to Zosyn to better cover aspiration
Follow occasional radiographically-last chest x-ray 08/24/[address] chest 08/25/2023
Nausea and emesis-improved
Aspiration precautions.
Anti-emetics as needed.
Speech therapy evaluation ongoing-reviewed with them
Dysphagia diet with pur�ed
Eventual video swallow
Note: Abdominal flat plate 08/27/23-nonspecific, nonobstructed intestinal bowel gas pattern
DVT prophylaxis-on Lovenox
GI prophylaxis-on pantoprazole
Nutrition
Early mobilization/physical therapy
Patient is a DNR status
Outpatient pulmonary [id number] at [facility]-Dr. Miller
Reviewed with nursing as well as primary service.
Pulmonary communications:
Dr. Brewer reviewed with daughter over the phone-08/26/23 she asked if I will call Dr. Miller at [facility]-daughter will attempt to provide me with number to call and then I will place phone call
Dr. Brewer reviewed with daughter at the bedside 08/27/23-explained end-stage nature of his pulmonary fibrosis, multiple comorbidities, deconditioning, malnutrition and potential/probable insurmountable obstacles-explained to the patient may not
survive hospitalization-she was tearful, but understanding..
Dr. Brewer reviewed with daughter at the bedside 08/28/23-explained toxic metabolic encephalopathy, current stability of pulmonary status, suspected aspiration pneumonia, change of antibiotics, and supportive care needed with an emphasis on comfort
Dr. Brewer reviewed with daughter at the bedside 08/29/2023-metabolic encephalopathy improved, ongoing treatment for pneumonia, need to rule out aspiration, daughter pleased with progress
Pulmonary communications:
Dr. Brewer spoke to Dr. Jesu Miller at [facility]-cell phone #[phone]- On 08/26/23. The patient had seen a couple resident caregiver and eventually landed at [facility] and Dr. Miller's clinic. He was on low-dose prednisone and Ofev which she was tolerating
well. Because of ongoing deterioration. The patient went to [facility] and was enrolled in a phase 3 trial, which caused significant diarrhea (trial drug in addition to Ofev) and the trial medication was discontinued. The plan was to restart
Ofev in the near future. I reviewed the clinical course thus far. Dr. Miller did not have any additional recommendations. With metabolic encephalopathy. He agreed high-dose steroids would not be in patient's best interest. He recommended ongoing
antibiotics and supportive care. I will discuss with daughter that I reviewed the case with Dr. Marie in to offer some confidence in his care.

Diagnosis section reviewed:
Echocardiogram 09/04/2021: Normal left ventricular size and function. No regional wall motion abnormalities. Mild LVH. Ejection fraction 55-60%. Normal biventricular size and function.
Mild aortic stenosis.
Subjective Data
-
Date of Service:
Date of Service: August 29, 2023
Chief Complaint: Pulmonary Follow Up and Dyspnea Follow Up
Subjective:
Mental status improved, alert and oriented, still occasional confusion, no complaints of shortness of breath, chest congestion, productive cough or abdominal pain
Review of Systems
General: Other (Per HPI)
Objective Data
Data Reviewed
Vital Signs / I&O:
Vital Signs
Temp Pulse Resp BP Pulse Ox
98.0 F 94 18 113/63 92
08/29/23 07:00 08/29/23 07:00 08/29/23 07:00 08/29/23 07:00 08/29/23 07:00
Intake and Output
08/28/23 08/29/23 08/30/23
06:59 06:59 06:59
Intake Total 1180 / 1180 340 / 340
Output Total 300 / 300 750 / 750
Balance 880 / 880 -410 / -410
SaO2: 92
Nasal Cannula flow liters per minute: 5
Physical Exam
General: Respiratory Distress (n) and Comfortable
HEENT: Normocephalic, Anicteric and Moist Mucous Membranes
Cardiovascular: Regular Rhythm
Respiratory: Wheeze (n), Crackles (Bilateral bases left greater than right), Rhonchi (n), Non-Labored Respirations, Accessory Resp Muscle Use (n) and Stridor (n)
GI: Soft, Non Distended and Non Tender
Neurology: Awake, Alert, No Motor Deficits, Lethargic and Other ( confused and delusional at times)
Skin: Warm, Good Color, Cyanosis (n), Jaundice (n) and Rash
Labs/Micro/Reports
Lab Data
08/29/23 07:04
Microbiology
08/24/23 12:37 Blood/Venous Blood Culture - Preliminary
No Growth in 4 days- Final report to follow
08/24/23 12:37 Blood/Venous Blood Culture - Preliminary
No Growth in 4 days- Final report to follow
[2023-08-29 09:31] LABS: Blood Urea Nitrogen 12 mg/dl (9-20); Calcium 8.4 mg/dl (8.4-10.2); Carbon Dioxide 39 mmol/L (22-30); Chloride 92 mmol/L (98-107); Estimated Creatinine Clearance 75 ml/min; Glucose 103 mg/dl (70-99); Magnesium 2.1 mg/dl (1.6-2.3); Phosphorus 2.8 mg/dl (2.5-4.5); Potassium 3.8 mmol/L (3.5-5.1); Sodium 136 mmol/L (135-145); eGFR > 60.00
--- NOTE | 2023-08-29 14:06 | CM ---
home manager reviewed patient's chart and spoke with patient and family and patient is much more alert, and plan is for rehab at [facility] per admissions automotive internet sales manager will need to call on Friday to confirm bed at [facility].
Plan; To follow up with [facility] on Friday for skilled placement.
[2023-08-29] MEDS: SEROQUEL 12.5 MG PO (14:32)
[2023-08-29] MEDS: ZITHROMAX INFUSION 250 IV (14:33)
[2023-08-29] MEDS: FLOMAX 0.400000000000000022 MG PO (14:33)
[2023-08-29 14:57] VITALS: BMI 19.2
[2023-08-29] MEDS: HALDOL 1 MG IV ×2 (16:00→19:52)
[2023-08-29 16:04] VITALS: BP 133/85
[2023-08-29] MEDS: LOVENOX SC (17:26)
[2023-08-29] MEDS: MIRALAX 17 GRAMS PO (19:45)
[2023-08-29] MEDS: SEROQUEL 25 MG PO (19:51)
[2023-08-29 19:53] VITALS: BP 140/84
[2023-08-29] MEDS: LOPRESSOR 25 MG PO (19:55)
[2023-08-29] MEDS: KEPPRA 2000 MG PO (21:51)
[2023-08-29] MEDS: NON-FORMULARY ITEM 100 MG PO (22:16)
[2023-08-29] MEDS: NON-FORMULARY ITEM 600 MG PO (22:17)
[2023-08-29 23:27] VITALS: BP 143/72
[2023-08-30] MEDS: ZOSYN 50 IV ×4 (00:37→18:45)
--- NOTE | 2023-08-30 06:24 | PTCARENOTE ---
Pt. 72% on 5L 02, restless in bed, notified respiratory to place bipap on pt., pt. resting more comfortably now, 92% on bipap.
[2023-08-30 07:36] VITALS: BP 113/66
[2023-08-30] MEDS: PLAVIX 75 MG PO (08:14)
[2023-08-30] MEDS: LOPRESSOR 25 MG PO (08:14)
[2023-08-30] MEDS: NSS (PRESERVATIVE FREE) 10 ML IV (08:14)
[2023-08-30] MEDS: PROTONIX IV 40 MG IV (08:15)
[2023-08-30] MEDS: ASPIR LOW (ENTERIC COATED) 81 MG PO (08:15)
[2023-08-30] MEDS: LIPITOR 80 MG PO (08:15)
[2023-08-30] MEDS: MIRALAX PO ×2 (08:15→10:31)
[2023-08-30] MEDS: DELTASONE 5 MG PO (08:15)
[2023-08-30] MEDS: FLOMAX 0.400000000000000022 MG PO (08:15)
[2023-08-30 08:19] LABS: Hemoglobin 10.2 g/dL (13.0-18.0); Mean Corp Hgb Conc. 31.9 g/dL (33.0-37.0); Mean Corpuscular Hgb 31.1 pg (27.0-31.0); Mean Corpuscular Volume 97.6 fL (80.0-94.0); Mean Platelet Volume 9.3 fL (7.4-10.4); Platelet Count 169 10^3/uL (130-400); Red Blood Cell Count 3.28 10^6/uL (4.70-6.10); Red Cell Dist. Width 13.9 % (11.5-14.5); White Blood Cell Count 7.8 10^3/uL (4.8-10.8)
--- NOTE | 2023-08-30 08:22 | W.PN.HOSP.TC ---
Today's Communication/Plan
-
Continue goals of care conversation
Assessment / Plan
Assessment / Plan
#Acute hypoxic respite failure
#Possible left mid/lower PNA/Hx ILD chronic steroid-dependent
Currently requiring 10 L of oxygen, increased from 3
COVID negative, chest CT shows progressive chronic interstitial lung disease with pneumonitis, unable to rule out pneumonia
Appreciate pulmonology input, antibiotics changed to Zosyn and azithromycin. Procalcitonin neg
Continue bronchodilators. Pulmonology suspects recurrent aspiration, SPL cleared for pureed diet w/ thin liquids 08/28
Poor prognosis per pulmonology, 08/29 asked pulmonology to evaluate for role of IV steroids
Goals of care conversation held with daughter 08/27
Another goals of care conversation held with daughter 08/29�would recommend hospice if patient does not turnaround in 24-48 hours
#Hx ILD on chronic steroid
-Patient finished drug trial study yesterday as his director speech at [facility] Dr. Edgar Miller wants him to restart Ofev
-stopped OFEv 2-3 weeks ago due to diarrhea his daughter states does come on and off of
-Pulmonology has been in contact with patient's usual director speech
-Continue home prednisone 5 mg daily. 08/29 asked pulmonology to evaluate for role of IV steroids
# Toxic metabolic encephalopathy
Likely from viral infection with fever and vomiting
Urine analysis negative. Head CT, B12/folic acid all negative
Appreciate neurology input, EEG negative, brain MRI negative
Continue IV Keppra, po lamictal
Supportive care, Seroquel oral if he can take p.o., IV Haldol as needed
#Fever with vomiting
#Sepsis
Present upon admission
Suspect viral gastroenteritis
Abdominal x-ray unremarkable
Dextrose IV fluids
#Hx nocturnal epilepsy
EEG negative for seizures
Keppra 1000 mg IV twice daily, po Lamictal 700 mg at bedtime
#Acute urinary retention
ladder scan showing 1600 mL of urine, Moise inserted
Started Flomax 0.4 mg daily 08/28
#Abnormal EKG
Trend trop, check echo
#CAD
#Cardiac stent April x 2, May x 1 at [facility] Dr aaron, pt follows with Dr Haley Galvez at [place]
-Resume aspirin, atorvastatin 80 mg daily, Plavix 75 mg daily, metoprolol tartrate 25 mg twice daily with hold parameters
#Chronic BiPAP use at bedtime
Uses full mask BiPAP with 3 L nasal cannula patient to bring own
#Hyponatremia
Improved with fluid restriction and IV fluids, continue to trend
#Daily Etoh use
drinks 2 beers daily
no concern for MSAS protocol
#GERD
PPI
#Known aortic stenosis
DVT prophylaxis
Subcu Lovenox
DNR Per pt with daughter at bedside
Updated daughter 08/29
Total time spent to see the patient on the floor, examine the patient, review data and lab results, discuss treatment plan with patient, nursing staff around 58 minutes
Physical Exam
General: No acute distress, lethargic appearing
HEENT: Normocephalic, Atraumatic, DMM
Respiratory: Clear to Auscultation bilaterally
Cardiac: Normal S1/S2, Regular Rate and Rhythm
GI: Soft, Nontender, Nondistended, Normal Bowel Sounds
Extremities: No Clubbing, Cyanosis, or Edema
Neuro: Lethargic, intermittent confusion noted
Psych: Intermittently agitated
Anticipated Discharge: > 48 hours
Subjective/Interval History
-
Date of Service: August 30, 2023
Notified by nursing staff that patient was satting 72% on 5 L of oxygen, he was placed on BiPAP. He is more somnolent today, not safe to eat. No fever, no vomiting.
Objective Data
-
Labs:
Laboratory Results
08/30/23
07:18
WBC Pending
Hgb Pending
Hct Pending
Plt Count Pending
Sodium Pending
Potassium Pending
Chloride Pending
Carbon Dioxide Pending
BUN Pending
Creatinine Pending
Glucose Pending
Calcium Pending
Vital Signs:
Vital Signs
Temp Pulse Resp BP Pulse Ox
97.9 F 89 28 113/66 97
08/30/23 07:36 08/30/23 08:14 08/30/23 07:36 08/30/23 08:14 08/30/23 07:36
I&O
08/29/23 08/30/23 08/31/23
06:59 06:59 06:59
Intake Total 340 / 340 480 / 480
Output Total 750 / 750 2170 / 2170
Balance -410 / -410 -1690 / -1690
[2023-08-30 08:45] VITALS: PULSE 2; PULSE 88
[2023-08-30 09:07] LABS: Blood Urea Nitrogen 13 mg/dl (9-20); Calcium 8.3 mg/dl (8.4-10.2); Carbon Dioxide 39 mmol/L (22-30); Chloride 94 mmol/L (98-107); Estimated Creatinine Clearance 75 ml/min; Glucose 129 mg/dl (70-99); Magnesium 2.1 mg/dl (1.6-2.3); Phosphorus 2.8 mg/dl (2.5-4.5); Potassium 3.3 mmol/L (3.5-5.1); Sodium 137 mmol/L (135-145); eGFR > 60.00
[2023-08-30 09:08] LABS: Troponin I 0.064 ng/ml
--- NOTE | 2023-08-30 10:08 | W.PN.PUL3 ---
Today's Communication / Plan
-
Strict NPO with aspiration precautions
Wean oxygen
Low threshold to start systemic steroids, however that may worsen his mental status
Metabolic encephalopathy initially improved, but today he is more altered --> check ABG as I feel he is having worsening hypercapnea. We are a difficult situation as he remains an aspiration risk and I do not feel it is in his best interest to
place him on positive airway pressure with BiPAP or NIV, even if he has hypercapnia. He would ultimately need to be intubated, but given his code status of DNR/DNI, this is not an option at this point. Patient really should be made comfort care
with hospice.
I updated daughter on the phone today in front of the patient's girlfriend.
Assessment
-
83-year-old male with past medical history noted, on low-dose chronic steroids for interstitial lung disease. Also on antifibrotic therapy Ofev, follows up at [facility]. Came to the hospital after falling off of bed. Found to be
hypoxemic. Recently seen in the emergency room for dehydration as well. Recently stopped off of due to diarrhea about 2 to 3 weeks ago. Chest x-ray showed new left sided infiltrate on top of interstitial changes that are chronic.
Respiratory insufficiency likely due to pneumonia on top of interstitial lung disease. Requiring 4-5 L of supplemental oxygen.
CXR:
-New extensive ground-glass opacity throughout the left mid and lower lung. Diagnostic possibilities are (1) SEVERE PNEUMONIA or (2) acute inflammatory pneumonitis.
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
mediastinal shift and elevation of the right hemidiaphragm (?CURRENCY EXCHANGE SPECIALIST)
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
Pulmonary cachexia
Toxic metabolic encephalopathy + delirium
Conditions present prior admission:
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 No details available, but the daughter says that the patient has chronic hypersensitivity pneumonitis with unknown trigger
5 mg of prednisone.
Patient stopped Ofev 2-3 weeks ago due to diarrhea
Not usually on supplemental oxygen.
Nocturnal BiPAP-2 L at bedtime.
Epilepsy
GERD
Coronary Artery disease
Aortic stenosis
Prior cardiac stents
Former smoker
Daily drinker-2 beers per day.
Plan
Pulmonary status unstable - this AM he was on BiPAP, then weaned off and is currently on 5L/min
Aspiration suspected --> MANAGER NC saw the pt today --> strict NPO given high aspiration risk given poor mental status
Respiratory status tenuous with aspiration, increased FiO2 requirements
Wean supplemental oxygen-has home oxygen but only uses it at night-currently on 3 L-94% saturation
Nocturnal BiPAP with 2 L of oxygen- he refused it last night (08/29/2023)
Considering patient has a history of chronic hypercapnia, with a rising serum bicarbonate level, need to check blood gas now and ensure pCO2 stable. We are in a difficult situation as patient likely has acute on chronic hypercapnia and would
benefit from BiPAP with sleep, however with his aspiration risk the positive airway pressure will only cause harm to [place]. Unfortunately, it appears that we are heading towards hospice.
Aspiration precautions
Incentive spirometry
Mucolytics
Mucus clearing devices
Continue outpatient prednisone 5 mg daily
Hesitate placing the patient on high-dose steroids due to significant mental status changes-also after Dr. 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
ABG 08/26/23--58/120/7.37-suspect baseline PCO2.
Monitor mental status-Toxic metabolic encephalopathy suspected- he initially improved on 08/27 - 08/28, but now he is more delirious and altered today
Check ABG now
CT head 08/26/23-no acute abnormalities
Brain MRI 08/27/23-no evidence of acute intracranial abnormalities,
Neurology evaluation noted-correspondence reviewed.
EEG without seizure
Cultures reviewed - BCx drawn on 08/24/2023 show NGTD
Unable to produce sputum
Empiric antibiotics-ceftriaxone and azithromycin--changed from ceftriaxone to Zosyn to better cover aspiration; continue zithromax
Follow occasional radiographically-last chest x-ray 08/24/[address] chest 08/25/2023
Nausea and emesis-improved
Aspiration precautions.
Anti-emetics as needed.
Speech therapy evaluation ongoing-reviewed with them; patient now strict NPO given poor mental status
Dysphagia diet with pur�ed
Note: Abdominal flat plate 08/27/23-nonspecific, nonobstructed intestinal bowel gas pattern
DVT prophylaxis-on Lovenox
GI prophylaxis-on pantoprazole
Nutrition
Early mobilization/physical therapy
Patient is a DNR status
Outpatient pulmonary dzsera-co-vaapjvm at [facility]-Dr. Miller
Reviewed with nursing as well as primary service.
Patient has guarded prognosis. Pulmonary service will continue to follow along.
Total time spent today was 50 minutes for this encounter. Time includes reviewing laboratory test/imaging results, reviewing pertinent medical records, obtaining and reviewing medical history, performing an appropriate exam, ordering medications,
tests and procedures. Time also includes documentation of this encounter, coordinating patient care and communicating with other healthcare professionals. Total time does not include separately billed tests performed on this date of service.
Pulmonary communications:
Dr. Brewer reviewed with daughter over the phone-08/26/23 she asked if I will call Dr. Miller at [facility]-daughter will attempt to provide me with number to call and then I will place phone call
Dr. Brewer reviewed with daughter at the bedside 08/27/23-explained end-stage nature of his pulmonary fibrosis, multiple comorbidities, deconditioning, malnutrition and potential/probable insurmountable obstacles-explained to the patient may not
survive hospitalization-she was tearful, but understanding..
Dr. Brewer reviewed with daughter at the bedside 08/28/23-explained toxic metabolic encephalopathy, current stability of pulmonary status, suspected aspiration pneumonia, change of antibiotics, and supportive care needed with an emphasis on comfort
Dr. Brewer reviewed with daughter at the bedside 08/29/2023-metabolic encephalopathy improved, ongoing treatment for pneumonia, need to rule out aspiration, daughter pleased with progress
Pulmonary communications:
Dr. Brewer spoke to Dr. Jesu Miller at [facility]-cell phone #[phone]- On 08/26/23. The patient had seen a couple auto seat cover installer and eventually landed at [facility] and Dr. Miller's clinic. He was on low-dose prednisone and Ofev which she was tolerating
well. Because of ongoing deterioration. The patient went to [facility] and was enrolled in a phase 3 trial, which caused significant diarrhea (trial drug in addition to Ofev) and the trial medication was discontinued. The plan was to restart
Ofev in the near future. I reviewed the clinical course thus far. Dr. Miller did not have any additional recommendations. With metabolic encephalopathy. He agreed high-dose steroids would not be in patient's best interest. He recommended ongoing
antibiotics and supportive care. I will discuss with daughter that I reviewed the case with Dr. Marie in to offer some confidence in his care.

Diagnosis section reviewed:
Echocardiogram 09/04/2021: Normal left ventricular size and function. No regional wall motion abnormalities. Mild LVH. Ejection fraction 55-60%. Normal biventricular size and function.
Mild aortic stenosis.
Subjective Data
-
Date of Service:
Date of Service: August 30, 2023
Chief Complaint: Pulmonary Follow Up and Dyspnea Follow Up
Subjective:
Patient seen today in the afternoon. He was sitting in bed, asleep, arousable to voice, and appears confused and delirious. Patient's girlfriend was at bedside, and I also spoke to the patient's daughter over the phone. The patient has been more
delirious the last 4 days. He is currently on 5 L/min nasal cannula but was on 10 L earlier in the day and even required BiPAP due to severe acute hypoxia. Patient now breathing comfortably and in no acute distress.
Review of Systems
General: Other (Unable to obtain given patient's acute clinical status/AMS/acute delirium)
Objective Data
Data Reviewed
Vital Signs / I&O / Oxygen:
Vital Signs
Temp Pulse Resp BP Pulse Ox
97.9 F 89 28 113/66 97
08/30/23 07:36 08/30/23 08:14 08/30/23 07:36 08/30/23 08:14 08/30/23 07:36
Intake and Output
08/29/23 08/30/23 08/31/23
06:59 06:59 06:59
Intake Total 340 / 340 480 / 480
Output Total 750 / 750 2170 / 2170
Balance -410 / -410 -1690 / -1690
SaO2 97
Nasal Cannula flow liters per 10
minute
Physical Exam
General: Respiratory Distress (n) and Comfortable
HEENT: Normocephalic and Anicteric
Cardiovascular: S1-S2 and Peripheral Edema (Negative)
Respiratory: Wheeze (n), Crackles (Bilateral), Rhonchi (n), Non-Labored Respirations, Accessory Resp Muscle Use (n) and Stridor (n)
GI: Soft, Non Distended, Non Tender and Normal Bowel Sounds
Neurology: Tremors (Negative), Lethargic (Easily arousable to voice but then quickly falls back asleep) and Other ( confused and delirious)
Skin: Warm, Dry, Cyanosis (n) and Jaundice (n)
Labs/Micro/Reports
Lab Data
08/30/23 07:18
08/30/23 07:18
Microbiology
08/24/23 12:37 Blood/Venous Blood Culture - Final
No Growth - Final Report
08/24/23 12:37 Blood/Venous Blood Culture - Final
No Growth - Final Report
[2023-08-30] MEDS: D5/0.9% SODIUM CHLORIDE 1000 IV (10:28)
[2023-08-30] MEDS: SEROQUEL 12.5 MG PO (10:29)
[2023-08-30] MEDS: KCL 260 MEQ IV (11:57)
--- NOTE | 2023-08-30 13:01 | SUR.PHASEII ---
Speech Language Pathology
Swallowing Therapy
Chart reviewed. Poor prognosis per pulmonology. GOC discussion with daughter on 08/27. WBC 7.8, WNL. Afebrile. On 10LPM via NC. Per FLAKITA Rodgers, poor maintenance of O2 sat overnight, placed on BiPAP this morning.
Received patient at bedside. Increased lethargy with open mouth posture. No verbal output. Not following commands. Untouched lunch tray at bedside. Initiated trials of thin liquid pipetted through straw with no attempt to swallow. Suction of bolus
performed. Terminated further trials. Recommend downgrading to strict NPO at this time. PATIENT REGISTRATION CLERK service to follow up tomorrow and re-advance diet as able. Not a candidate for VSE at this time due to poor following of commands and increased lethargy.
Alerted Dr. Lezama and FLAKITA Rodgers.
Recommendations:
1. Strict NPO
2. Meds via non oral means
3. Oral care 3-5x/day
4. Would benefit from VSE once mentation improved and closer to baseline; however, not appropriate at this time.
5. PATIENT REGISTRATION CLERK to continue to follow
--- NOTE | 2023-08-30 13:03 | PTOTSP ---
Speech Language Pathology
Swallowing Therapy
Chart reviewed. Poor prognosis per pulmonology. GOC discussion with daughter on 08/27. WBC 7.8, WNL. Afebrile. On 10LPM via NC. Per FLAKITA Rodgers, poor maintenance of O2 sat overnight, placed on BiPAP this morning.
Received patient at bedside. Increased lethargy with open mouth posture. No verbal output. Not following commands. Untouched lunch tray at bedside. Initiated trials of thin liquid pipetted through straw with no attempt to swallow. Suction of bolus
performed. Terminated further trials. Recommend downgrading to strict NPO at this time. ANIMATION CAMERA OPERATOR service to follow up tomorrow and re-advance diet as able. Not a candidate for VSE at this time due to poor following of commands and increased lethargy.
Alerted Dr. Lezama and FLAKITA Rodgers.
Recommendations:
1. Strict NPO
2. Meds via non oral means
3. Oral care 3-5x/day
4. Would benefit from VSE once mentation improved and closer to baseline; however, not appropriate at this time.
5. ANIMATION CAMERA OPERATOR to continue to follow
[2023-08-30] MEDS: ZITHROMAX INFUSION 250 IV (15:33)
[2023-08-30 15:34] VITALS: BP 99/53
[2023-08-30] MEDS: LOVENOX 40 MG SC (16:53)
[2023-08-30 19:20] VITALS: BP 76/36
--- NOTE | 2023-08-30 19:20 | RR ---
At change of shift, pct was assisting pt. on toilet when patient became unresponsive, pct called out for help, staff arrived and saw pt unresponsive on toilet, staff carried pt. back to bed and placed on bipap with oxygen. Rapid response called.
Blood pressure 76/36, heart rate 66, respirations 8. RYAN Flores ordered fluid bolus which was started. Unable to obtain blood pressure, pulse or respirations at this time. Pt and RYAN Flores pronounced pt and family notified.
[2023-08-30 19:30] LABS: Glucose - Point of Care 155 mg/dl (70-99)
--- NOTE | 2023-08-30 19:34 | W.PN.UPDATE ---
Update Note
Progress Note Update
BANQUET CHEF
Per the staff, BANQUET CHEF called as the patient went to the bathroom with the assistance of the nursing aid, and the patient went unresponsive in the bathroom. When I arrived to the room with the BANQUET CHEF team, patient was noted in bed placed on BIPAP. Vital
signs BP 76/ 36, hr 66, RR 8. Patient is pale with labored breathing. Stat order of IVF of NSS 500cc bolus. Patient is DNR. While this provider on the phone with the daughter to discuss the goal of care and update regarding the current condition,
one of the nursing staff notified this provider that the patient . Assessed the patient, was pronounced at 19:30, and daughter was notified.
--- NOTE | 2023-08-30 19:35 | W.PN.DEATH ---
Pronouncement of
-
Called to see patient to pronounce.
No spontaneous heart tones or respirations noted.
Patient not responsive to verbal stimuli.
Patient is pronounced .
Time of : 19:30
Date of : 08/30/23
Cause of : Acute hypoxic respiratory failure, Toxic metabolic encephalopathy, coronary artery disease, aortic stenosis, nocturnal epilepsy.
Family Notified: Yes (Daughter /Shiona)
--- NOTE | 2023-08-30 19:40 | RR ---
Pt. was on 5L midflow, on toilet when he became unresponsive, called rapid response, carried pt. back to bed, pt. had thready pulse, pale, NSS bolused initiated, placed on bipap, DNR, pt. continued to be unresponsive until he , family
notified by RYAN Flores.
--- NOTE | 2023-08-31 09:10 | W.DCSUMMARY ---
Discharge Summary
Discharge Data
Date of Admission: 08/24/23
Date of Discharge: 08/30/23
-
Pending Results: No
Hospital Course
Time of expiration: 19:30
Causes of :
Acute hypoxic respiratory failure
Progressive worsening interstitial lung disease on chronic steroids
Toxic metabolic encephalopathy/acute delirium
Fever with vomiting
Sepsis
History of nocturnal epilepsy
Acute urinary retention
Abnormal electrocardiogram
Coronary artery disease status post stent placement in May 2023
Hyponatremia
Gastroesophageal reflux disease
Consults: Pulmonology, neurology
Chest CT:
1. Moderate to severe changes compatible with chronic interstitial lung disease with features suggesting combination of usual interstitial pneumonitis and nonspecific interstitial pneumonitis. Findings are progressed from 12/16/2022. Cannot rule
out superimposed left lower lobe pneumonia.
Hospital course:
83-year-old male with a past medical history of interstitial lung disease on chronic steroids, nocturnal epilepsy, coronary artery disease status post stent placement in May 2023, and gastroesophageal reflux disease was admitted for acute
hypoxic respiratory failure. Patient was seen in conjunction with pulmonology. Chest CT shows moderate to severe changes compatible with chronic interstitial lung disease. Pneumonia was unable to be ruled out. Patient was febrile upon admission,
and was treated with IV antibiotics. Pulmonology discussed with patient's usual wellness spa manager, Dr. Edgar Miller, and both decided that he should stay on his usual oral dose of prednisone 5 mg daily since he is requiring 3 L of oxygen.
Patient's hospital course was complicated by acute delirium and vomiting. KUB shows nonobstructive bowel gas pattern. He received Seroquel and Haldol as needed. He was started on IV fluids. His antibiotics were changed to IV Zosyn to cover for
aspiration. His mental status waxed and waned. He was seen in conjunction with neurology. Brain MRI was negative for acute intracranial abnormality. He has a history of nocturnal epilepsy, and is on Keppra and Lamictal. EEG was negative for
seizure activity.
Pulmonology and myself had multiple discussions with patient's daughter/power of resp ther. His prognosis was poor, and there was talk about possibly transitioning him to hospice in the near future. Patient's mentation waxed and waned. His
respiratory failure worsened. He required more oxygen on the day of expiration. Patient's blood pressure decreased, and he peacefully on 08/31/2023 at 19:30. His daughter was notified by phone, condolences offered.
Discharge Plan
-
Patient Disposition:
Date/Time
Date/Time: 08/30/23 19:30
Discharge Date and Time
Discharge Date/Time: 08/30/23 19:30
Print Language: UPPER SORBIAN
== END 2023-08-30 19:30 | disposition expired | DRG 871 ==
LOC: 4 WEST ACU 16:29
PROVIDERS: Clinical Nurse Specialist Family Health; Internal Medicine Critical Care Medicine; Physician Assistant; ADMITTING PHYSICIAN Internal Medicine; ATTENDING PHYSICIAN Family Medicine; CONSULT PHYSICIAN Internal Medicine Critical Care Medicine; CONSULT PHYSICIAN Student in an Organized Health Care Education/Training Program; EMERGENCY PHYSICIAN Emergency Medicine; FAMILY PHYSICIAN Family Medicine
DX: A41.9 Sepsis, unspecified organism (principal); G92.8 Other toxic encephalopathy; J96.01 Acute respiratory failure with hypoxia; J69.0 Pneumonitis due to inhalation of food and vomit; R64 Cachexia; G40.009 Localization-related (focal) (partial) idiopathic epilepsy and epileptic syndromes with seizures of localized onset, not intractable, without status epilepticus; E87.1 Hypo-osmolality and hyponatremia; J84.9 Interstitial pulmonary disease, unspecified; Z68.1 Body mass index [BMI] 19.9 or less, adult; Z66 Do not resuscitate; Z87.891 Personal history of nicotine dependence; K21.9 Gastro-esophageal reflux disease without esophagitis; I25.10 Atherosclerotic heart disease of native coronary artery without angina pectoris; Z11.52 Encounter for screening for COVID-19; A08.4 Viral intestinal infection, unspecified
CPT/HCPCS: 36600; 70450; 70553; 71046; 71250; 74018; 80048; 80053; 81003; 82607; 82805; 82962; 83605; 83735; 84100; 84145; 84443; 84484; 85025; 85027; 87040; 87811; 92526; 92610; 93005; 94660; 95812; 96361; 96374; 97163; 97167; 99285; A9575